=== PATIENT | male | born 1955 | race African-American/Black ===

== ENCOUNTER 2019-02-16 08:41 | Emergency (ER) | payer OTHER ==
[2019-02-16 09:51] LABS: #Basophils 0.1 thou/uL (0.0-0.2); #Eosinphils 0.2 thou/uL (0.0-0.7); #Lymphocytes 2.2 thou/uL (1.20-3.40); #Neutrophils 9.1 thou/uL (1.40-6.50); %Basophils 0.8 % (0.0-1.0); %Eosinophils 1.6 % (0.0-10.0); %Lymphocytes 17.7 % (21.0-51.0); %Monocytes 7.6 % (0.0-10.0); %Neutrophils 72.3 % (42.0-75.0); Hemoglobin 10.5 g/dL (14.0-18.0); Mean Corpuscular HGB CONC 30.4 g/dL (32.0-36.0); Mean Corpuscular Hemoglobin 24.3 pg (27.0-31.0); Mean Corpuscular Volume 79.8 fL (78.0-98.0); Mean Platelet Volume 8.4 fL (7.4-10.4); Platelet Count 313 thou/uL (130-400); RBC Distribution Width 15.9 % (11.5-14.5); Red Blood Cell (RBC) Count 4.34 mill/uL (4.70-6.10); White Blood Cell (WBC) Count 12.5 thou/uL (4.8-10.8)
[2019-02-16 09:52] LABS: ALT (SGPT) 22 U/L (8-55); AST (SGOT) 16 U/L (5-34); Albumin 3.6 g/dL (3.4-4.8); Alkaline Phosphatase 57 U/L (40-150); Anion Gap 13 mmol/L (10-20); BUN (Urea Nitrogen) 18 mg/dL (8.4-25.7); Bilirubin, Total 0.3 mg/dL (0.2-1.2); Calc. Creatinine Clearance 0 mL/min (70-130); Calcium 9.1 mg/dL (7.8-10.44); Carbon Dioxide 27 mmol/L (23-31); Chloride 101 mmol/L (98-107); Estimated GFR-MDRD Greater than 90; Globulin 3.1 g/dL (2.4-3.5); Glucose 96 mg/dL (80-115); Lipase 29 U/L (8-78); Potassium 4.8 mmol/L (3.5-5.1); Protein, Total 6.7 g/dL (5.8-8.1); Sodium 136 mmol/L (136-145)
== END 2019-02-16 11:50 | disposition home or self-care (01) ==
LOC: ERS 08:41
DX: E86.0 Dehydration (principal); K21.9 Gastro-esophageal reflux disease without esophagitis; E78.5 Hyperlipidemia, unspecified; I10 Essential (primary) hypertension; J44.9 Chronic obstructive pulmonary disease, unspecified; I73.9 Peripheral vascular disease, unspecified; F41.9 Anxiety disorder, unspecified; F32.9 Major depressive disorder, single episode, unspecified; Z79.899 Other long term (current) drug therapy
CPT/HCPCS: 36415; 80053; 83605; 83690; 85025; 96360; 96361

== ENCOUNTER 2019-10-03 00:22 | Inpatient (IN) | payer OTHER ==
[2019-10-03] MEDS ORDERED: Lorazepam 2 MG/ML VIAL ONE (00:37)
[2019-10-03 01:13] LABS: Prothrombin Time 13.6 SEC (12.0-14.7)
[2019-10-03 01:22] LABS: #Basophils 0.1 thou/uL (0.0-0.2); #Eosinphils 0.2 thou/uL (0.0-0.7); #Lymphocytes 3.2 thou/uL (1.20-3.40); #Monocytes 0.7 thou/uL (0.11-0.59); %Basophils 0.6 % (0.0-1.0); %Eosinophils 1.5 % (0.0-10.0); %Lymphocytes 24.3 % (21.0-51.0); %Neutrophils 68.8 % (42.0-75.0); Hemoglobin 11.6 g/dL (14.0-18.0); Mean Corpuscular HGB CONC 31.6 g/dL (32.0-36.0); Mean Corpuscular Volume 76.1 fL (78.0-98.0); Mean Platelet Volume 10.1 fL (7.4-10.4); Platelet Count 323 thou/uL (130-400); RBC Distribution Width 16.5 % (11.5-14.5); Red Blood Cell (RBC) Count 4.84 mill/uL (4.70-6.10); White Blood Cell (WBC) Count 13.1 thou/uL (4.8-10.8)
[2019-10-03] MEDS ORDERED: Pantoprazole 40 MG VIAL ONE (01:27)
[2019-10-03 01:29] LABS: ALT (SGPT) 15 U/L (8-55); AST (SGOT) 21 U/L (5-34); Albumin 4.1 g/dL (3.4-4.8); Alkaline Phosphatase 60 U/L (40-110); Anion Gap 15 mmol/L (10-20); BUN (Urea Nitrogen) 14 mg/dL (8.4-25.7); Bilirubin, Total 0.3 mg/dL (0.2-1.2); Calc. Creatinine Clearance 0 mL/min (70-130); Calcium 9.2 mg/dL (7.8-10.44); Carbon Dioxide 23 mmol/L (23-31); Chloride 108 mmol/L (98-107); Estimated GFR-MDRD Greater than 90; Globulin 3.6 g/dL (2.4-3.5); Glucose 110 mg/dL (80-115); Lipase 57 U/L (8-78); Potassium 4.4 mmol/L (3.5-5.1); Protein, Total 7.7 g/dL (5.8-8.1); Sodium 142 mmol/L (136-145)
[2019-10-03] MEDS ORDERED: Pantoprazole 80 MG, Admixture Fee 1 EACH in Sodium Chloride 0.9% 100 ML IVPB SCH (01:30)
[2019-10-03] MEDS ORDERED: Ondansetron PF 4 MG/2 ML Vial IVP PRN ×2 (03:39→07:15)
[2019-10-03] MEDS ORDERED: Acetaminophen 1,000 MG in Premix Bag 1 BAG IVPB PRN (03:39)
[2019-10-03] MEDS ORDERED: Sodium Chloride 0.9% 1,000 ML IV SCH (03:45)
[2019-10-03 04:15] VITALS: BMI 67.8
[2019-10-03] MEDS ORDERED: HYDROcodone/Acetaminophen 5/325 mg Tablet PO PRN (07:15)
[2019-10-03] MEDS ORDERED: Acetaminophen 325 MG TAB PO PRN (07:15)
--- NOTE | 2019-10-03 07:18 | PDOC.HHP ---
Hospitalist HPI - History of Present Illness Coffee ground emesis History of Present Illness: 64M with PMH dementia, bilateral AKA, HLD, HTN who presents from [facility] w/ 3 episodes coffee ground emesis, loose bloody BMs also reported, patient reported abdominal pain to ED downstairs but on my evaluation complains of chronic hip pain, is a poor historian. In ED, labs significant for hgb 11.,6, coags normal. patient to be admitted to [facility] for GI consult Hospitalist ROS - Review of Systems ROS unobtainable: due to mental status (dementia) - Medication Medications: Active Medications Generic Name Dose Route Start Last Admin Trade Name Freq PRN Reason Stop Dose Admin Sodium Chloride 1,000 mls @ 90 mls/hr 10/03/19 03:45 10/03/19 05:15 Normal Saline 0.9% IV 10/03/19 14:28 Not Given .[id number] [facility] Hospitalist History - Past Medical History Other Medical History: GERD, HLD, HTN, dementia, aphasia, cva, L hemiplegia, bilateral BKA - Past Surgical History Other Surgical History: bilateral aka - Family History Other Family History: reviewed and noncontributory - Social History Other Social History: liver at [facility] - Exam General Appearance: NAD Eye: PERRL ENT: normocephalic atraumatic Neck: supple, symmetric, no JVD Heart: RRR, no murmur, no gallops Respiratory: CTAB, no wheezes, no rales, no ronchi Gastrointestinal: soft, non-tender, non-distended, normal bowel sounds Extremities: no cyanosis, no clubbing, no edema Extremities - other findings: bilateral aka Skin: no lesions, no rashes Neurological - other findings: drowsy, reportedly due to medication given in ED Musculoskeletal: normal tone, normal strength Psychiatric: normal affect, normal behavior, A&O x 3 Psychiatric - other findings: drowsy Hospitalist Results - Labs Result Diagrams: 10/03/19 00:57 10/03/19 00:39 Lab results: WBC 13.1 thou/uL (4.8-10.8) H 10/03/19 00:57 Hgb 11.6 g/dL (14.0-18.0) L 10/03/19 00:57 Hct 36.8 % (42.0-52.0) L 10/03/19 00:57 MCV 76.1 fL (78.0-98.0) L 10/03/19 00:57 Plt Count 323 thou/uL (130-400) 10/03/19 00:57 Neutrophils % 68.8 % (42.0-75.0) 10/03/19 00:57 Sodium 142 mmol/L (136-145) 10/03/19 00:39 Potassium 4.4 mmol/L (3.5-5.1) 10/03/19 00:39 Chloride 108 mmol/L (98-107) H 10/03/19 00:39 Carbon Dioxide 23 mmol/L (23-31) 10/03/19 00:39 BUN 14 mg/dL (8.4-25.7) 10/03/19 00:39 Creatinine 0.98 mg/dL (0.7-1.3) 10/03/19 00:39 Glucose 110 mg/dL (80-115) 10/03/19 00:39 Calcium 9.2 mg/dL (7.8-10.44) 10/03/19 00:39 Total Bilirubin 0.3 mg/dL (0.2-1.2) 10/03/19 00:39 AST 21 U/L (5-34) 10/03/19 00:39 ALT 15 U/L (8-55) 10/03/19 00:39 Alkaline Phosphatase 60 U/L (40-110) 10/03/19 00:39 Serum Total Protein 7.7 g/dL (5.8-8.1) 10/03/19 00:39 Albumin 4.1 g/dL (3.4-4.8) 10/03/19 00:39 Lipase 57 U/L (8-78) 10/03/19 00:39 Hospitalist H&P A/P - Problem (1) Upper GI bleed Code(s): K92.2 - GASTROINTESTINAL HEMORRHAGE, UNSPECIFIED Status: Acute Assessment and Plan: consult placed for GI in the ED, trend hgb, transfuse PRN hgb < 7, continue IV PPI BID (2) Paroxysmal SVT (supraventricular tachycardia) Code(s): I47.1 - SUPRAVENTRICULAR TACHYCARDIA Status: Acute Assessment and Plan: improved with interventions in ED, EKGs with improvement of rate from 170s to 120s (3) GERD (gastroesophageal reflux disease) Code(s): K21.9 - GASTRO-ESOPHAGEAL REFLUX DISEASE WITHOUT ESOPHAGITIS Status: Chronic Qualifiers: Esophagitis presence: without esophagitis Qualified Code(s): K21.9 - Gastro -esophageal reflux disease without esophagitis Assessment and Plan: on BID IV PPI (4) H/O: CVA (cerebrovascular accident) Code(s): Z86.73 - PRSNL HX OF TIA (TIA), AND CEREB INFRC W/O RESID DEFICITS Status: Chronic Assessment and Plan: noted, continue home medications as appropriate (5) HLD (hyperlipidemia) Code(s): E78.5 - HYPERLIPIDEMIA, UNSPECIFIED Status: Chronic Assessment and Plan: noted, continue home meds as appropriate (6) HTN (hypertension) Code(s): I10 - ESSENTIAL (PRIMARY) HYPERTENSION Status: Chronic Qualifiers: Hypertension type: essential hypertension Qualified Code(s): I10 - Essential (primary) hypertension Assessment and Plan: noted, continue home medications as appropriate (7) Hx of AKA (above knee amputation) Code(s): Z89.619 - ACQUIRED ABSENCE OF UNSPECIFIED LEG ABOVE KNEE Status: Chronic Assessment and Plan: noted, PT eval, hold activity until they evlauate
[2019-10-03] MEDS: Sodium Chloride 0.9% 1,000 ML IV SCH (09:02)
[2019-10-03] MEDS: Pantoprazole 40 MG VIAL IVP SCH ×2 (09:03→21:40)
--- NOTE | 2019-10-03 11:36 | CON ---
DATE OF CONSULTATION: 10/03/2019 REQUESTING PHYSICIANS: Mena Hernandez MD REASON FOR CONSULTATION: Coffee-grounds emesis. HISTORY OF PRESENT ILLNESS: Dov Gee is a 64-year-old man with an unfortunate history of dementia and CVA as well as peripheral vascular disease, status post bilateral [id number] amputations. I met him briefly in May 2016, at which time, we placed a PEG tube for his oropharyngeal dysphagia. The examination endoscopically was otherwise normal at that time. The PEG tube has since been removed. My understanding is that he has been tolerating a pureed diet at his [facility]. He was sent here from the [facility] overnight with reports of 3 episodes of coffee-grounds emesis yesterday. Evidently, FOBT was checked in the ER and was positive, though it does not sound like he had any true melena or hematochezia. He has not had any emesis since admission this morning. He denies any nausea. He denies any abdominal pain. However, he is a difficult historian and does not always answer questions appropriately. Laboratory studies are showing hemoglobin 11.6, normal BUN only 14. He is receiving IV Protonix scheduled every 12 hours and has remained hemodynamically stable. REVIEW OF SYSTEMS: Full review of systems including constitutional, head, eyes, ears, nose, throat, GI, , cardiovascular, respiratory, musculoskeletal, neurologic systems was unable to be obtained due to the patient's altered mental status with baseline dementia. MEDICATIONS: Outpatient medications: 1. Venlafaxine. 2. Benztropine. 3. Amlodipine. 4. Divalproex. 5. Acetaminophen p.r.n. 6. Lisinopril. 7. Folic acid. 8. Docusate 100 mg b.i.d. 9. Metoprolol. 10. Pravastatin. Inpatient medications: Pantoprazole 40 mg IV b.i.d. PAST MEDICAL HISTORY: GERD; hypertension; hyperlipidemia; dementia; CVA; aphasia; oropharyngeal dysphagia; left hemiplegia; bilateral [id number] amputation; PEG tube placement in May 2016, which has since been removed. FAMILY HISTORY: Noncontributory. SOCIAL HISTORY: Lives at [facility]. PHYSICAL EXAMINATION: VITAL SIGNS: Temperature 96.7, pulse 95, blood pressure 121/78, and oxygen saturation 95% on room air. GENERAL: A 64-year-old man, lying in bed comfortably, in no acute distress. Mental, he is able to answer some questions, but not all appropriately. He is not oriented to place or time. SKIN: No jaundice. No rashes are palpable. EYES: No scleral icterus. Extraocular eye movements intact. ENT: Mucous membranes moist. No oral lesions. LYMPH: No submandibular or supraclavicular lymphadenopathy. THYROID: Nontender to palpation. HEART: Regular rate and rhythm. LUNGS: Clear to auscultation bilaterally. ABDOMEN: Flat. Bowel sounds present. Soft, nontender to palpation throughout. Midline scar is well-healed. Scar from prior PEG site in the left upper quadrant is also well healed. EXTREMITIES: No peripheral edema. VESSELS: Radial pulses 2+ bilaterally. NEURO: He has contractions with left hemiplegia. LABORATORY STUDIES: Hemoglobin 11.6, WBC 13.1, and platelets 323. INR 1.0. Sodium 142, potassium 4.4, BUN 14, creatinine 0.98, and lipase 57. LFTs all normal. ASSESSMENT AND PLAN: 1. Coffee-grounds emesis. 2. Anemia, mild. 3. Heme-positive stool. The report is that he had 3 episodes of coffee-grounds emesis yesterday. He does have a mild anemia, unclear what the chronicity of this is. He is not currently complaining of any symptoms and remains hemodynamically stable. It would be reasonable to perform EGD for further investigation, particularly as it does not appear he is on chronic acid suppression at the [facility]. We will plan for diagnostic esophagogastroduodenoscopy tomorrow. He can have his pureed diet today, or whatever speech pathology had recommended, then have him n.p.o. after midnight for procedure tomorrow. Further recommendations following esophagogastroduodenoscopy. Continue with the IV Protonix b.i.d. in the meantime. Thank you for the consultation. Please call anytime with questions or concerns. Job ID: [id number]
[2019-10-03] MEDS ORDERED: Sodium Chloride 0.9% (PF) 10 ML VIAL FS PRN (20:14)
[2019-10-04] MEDS: Sodium Chloride 0.9% 1,000 ML IV SCH (02:54)
[2019-10-04 04:56] LABS: #Basophils 0.1 thou/uL (0.0-0.2); #Eosinphils 0.2 thou/uL (0.0-0.7); #Lymphocytes 1.5 thou/uL (1.20-3.40); #Monocytes 0.4 thou/uL (0.11-0.59); #Neutrophils 4.2 thou/uL (1.40-6.50); %Basophils 0.8 % (0.0-1.0); %Monocytes 6.2 % (0.0-10.0); %Neutrophils 65.9 % (42.0-75.0); Hemoglobin 9.1 g/dL (14.0-18.0); Mean Corpuscular HGB CONC 30.3 g/dL (32.0-36.0); Mean Corpuscular Hemoglobin 23.2 pg (27.0-31.0); Mean Corpuscular Volume 76.5 fL (78.0-98.0); Platelet Count 245 thou/uL (130-400); RBC Distribution Width 16.3 % (11.5-14.5); White Blood Cell (WBC) Count 6.4 thou/uL (4.8-10.8)
[2019-10-04 05:18] LABS: ALT (SGPT) 11 U/L (8-55); AST (SGOT) 28 U/L (5-34); Albumin 3.3 g/dL (3.4-4.8); Alkaline Phosphatase 51 U/L (40-110); Anion Gap 11 mmol/L (10-20); BUN (Urea Nitrogen) 9 mg/dL (8.4-25.7); Bilirubin, Total 0.3 mg/dL (0.2-1.2); Calc. Creatinine Clearance 85 mL/min (70-130); Calcium 8.1 mg/dL (7.8-10.44); Carbon Dioxide 22 mmol/L (23-31); Chloride 112 mmol/L (98-107); Estimated GFR-MDRD Greater than 90; Globulin 2.6 g/dL (2.4-3.5); Glucose 80 mg/dL (80-115); Potassium 3.7 mmol/L (3.5-5.1); Protein, Total 5.9 g/dL (5.8-8.1); Sodium 141 mmol/L (136-145)
[2019-10-04] MEDS ORDERED: Ondansetron HCl/PF 4 MG/2 ML Vial IVP PRN (07:48)
--- NOTE | 2019-10-04 08:43 | OP ---
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 PROCEDURE PERFORMED: Esophagogastroduodenoscopy, diagnostic. INDICATIONS: 1. Hematemesis. 2. Anemia. 3. Heme-positive stool. MEDICATIONS: See Anesthesia record. FINDINGS: After discussion of the risks, benefits, and alternatives of the procedure, informed consent was obtained and verified. Pre-endoscopic cardiopulmonary examination was satisfactory. Time-out was performed before sedation was achieved. Sedation was achieved with Anesthesia assistance in the endoscopy unit. A Pentax adult upper endoscope was placed into the oropharynx and passed through the cricopharyngeus under direct visualization. The proximal esophageal mucosa appeared normal. In the mid and distal esophagus, there is erosive esophagitis, LA grade C. Just above the GE junction at 38 cm, there is a shallow ulceration. There is a small hiatal hernia. The endoscope was advanced beyond this and into the stomach. Forward and retroflexed views of the entire gastric mucosa were obtained. The gastric mucosa appeared normal. The endoscope was advanced through the pylorus and into the first and second portions of the duodenum, which appeared normal. The upper endoscope was completely withdrawn and the patient allowed to recover. The patient tolerated the procedure well. There were no immediate postprocedure complications. IMPRESSION: 1. Distal erosive esophagitis, with shallow ulcer just above the gastroesophageal junction at 38 cm. 2. Small hiatal hernia. 3. Otherwise, normal esophagogastroduodenoscopy. 4. No evidence of any old blood or active bleeding. RECOMMENDATIONS: 1. Give pantoprazole 40 mg by mouth twice daily for 1 month, then switch to once daily dosing thereafter. 2. Elevate the head of the bed, especially in 1 to 2 hours after meals or taking any pills. GI will sign off. Please call back anytime with questions or concerns. Job ID: [id number]
[2019-10-04] MEDS: Pantoprazole 40 MG VIAL IVP SCH ×2 (09:48→22:10)
[2019-10-04] MEDS ORDERED: Lidocaine 1% PF 5 ML VIAL ONE (11:10)
[2019-10-04] MEDS ORDERED: PROPOFOL 200 MG/20 ML VIAL ONE (11:10)
[2019-10-04] MEDS ORDERED: traMADol HCl 50 MG TAB PO PRN (17:58)
--- NOTE | 2019-10-04 18:13 | PDOC.HOSPP ---
- Subjective Encounter Date: 10/04/19 Encounter Time: 18:00 Subjective: f/u for GI bleed s/p EGD showing distal erosive esophagitis tx with IV Protonix. Pt denies any new complaints and tolerating po intake of pureed diet. - Objective Vital Signs & Weight: Vital Signs (12 hours) Temp Pulse Resp BP Pulse Ox 10/04/19 15:05 98.1 F 84 16 182/95 H 99 10/04/19 12:07 98.3 F 91 14 140/84 99 10/04/19 07:45 96 10/04/19 07:41 97.8 F 110 H 18 165/71 H 96 Weight Weight 125 lb 1.6 oz I&O: 10/03/19 10/04/19 10/05/19 06:59 06:59 06:59 Intake Total 0 Balance 0 Result Diagrams: 10/04/19 04:24 10/04/19 04:24 Additional Labs: Microbiology 10/03/19 01:10 Stool - Pending Stool Occult Blood (LATOYA) - Final Laboratory Tests 10/03/19 00:57 WBC 13.1 H Hgb 11.6 L EKG Reviewed by me: Yes (Tele - SR) Hospitalist ROS - Medication Medications: Active Medications Generic Name Dose Route Start Last Admin Trade Name Freq PRN Reason Stop Dose Admin Sodium Chloride 1,000 mls @ 50 mls/hr 10/03/19 07:15 10/04/19 02:54 Normal Saline 0.9% IV 1,000 mls .Q20H JOSSUE Administration Pantoprazole Sodium 40 mg 10/04/19 09:00 10/04/19 09:48 Protonix IVP 40 mg BID JOSSUE Administration Sodium Chloride 10 ml 10/03/19 09:00 10/04/19 09:49 Flush - Normal Saline IVF 10 ml Q12HR JOSSUE Administration - Exam General Appearance: NAD, awake alert Eye: PERRL, anicteric sclera ENT: normocephalic atraumatic, no oropharyngeal lesions Neck: supple, symmetric, no JVD, no thyromegaly Heart: RRR, no gallops, no rubs Heart - other findings: tachycardic Respiratory: CTAB, no wheezes, no rales, no ronchi Gastrointestinal: soft, non-tender, non-distended, normal bowel sounds Extremities: no cyanosis, no clubbing Extremities - other findings: contractures of UE's Skin: normal turgor Neurological: no new deficit Neurological - other findings: dysarthric, L-hemiplegia Psychiatric: oriented to person Hosp A/P (1) Erosive esophagitis Code(s): K22.10 - ULCER OF ESOPHAGUS WITHOUT BLEEDING Status: Acute Plan: Continue Protonix 40mg BID (2) Upper GI bleed Code(s): K92.2 - GASTROINTESTINAL HEMORRHAGE, UNSPECIFIED Status: Acute Plan: Likely due to #1, see above (3) GERD (gastroesophageal reflux disease) Code(s): K21.9 - GASTRO-ESOPHAGEAL REFLUX DISEASE WITHOUT ESOPHAGITIS Status: Chronic Qualifiers: Esophagitis presence: without esophagitis Qualified Code(s): K21.9 - Gastro -esophageal reflux disease without esophagitis Plan: Protonix 40mg BID (4) Dementia Code(s): F03.90 - UNSPECIFIED DEMENTIA WITHOUT BEHAVIORAL DISTURBANCE Status: Chronic Qualifiers: Dementia type: unspecified type Dementia behavioral disturbance: without behavioral disturbance Qualified Code(s): F03.90 - Unspecified dementia without behavioral disturbance Plan: Supportive care - Plan administrator social welfare, DVT proph w/SCDs Stable currently Continue Protonix 40mg BID Resume Pureed diet Saline lock IVF's AM lab: CBC Likely back to [facility] in 24h
[2019-10-04] MEDS ORDERED: Benztropine 1 MG TAB PO SCH (21:00)
[2019-10-04] MEDS: Benztropine 1 MG TAB PO SCH (22:09)
[2019-10-04] MEDS: Docusate 100 MG CAP PO SCH (22:09)
[2019-10-04] MEDS: Metoprolol Tartrate 25 MG TAB PO SCH (22:10)
[2019-10-05 07:15] LABS: Reticulocyte Count 1.2 % (0.5-1.5)
[2019-10-05 08:19] LABS: Eosinophils 5 % (0-10); Hemoglobin 9.5 g/dL (14.0-18.0); Hypochromia SLIGHT = 6-15 cells (100X) (0-5/hpf); Lymphocytes 25 % (21-51); MDiff Complete? YES; Mean Corpuscular HGB CONC 29.7 g/dL (32.0-36.0); Mean Corpuscular Hemoglobin 22.5 pg (27.0-31.0); Mean Corpuscular Volume 75.7 fL (78.0-98.0); Mean Platelet Volume 9.9 fL (7.4-10.4); Neutrophil 70 % (42-75); Ovalocytes SLIGHT = 2-5 cells (100X) (0-1/hpf); Platelet Count 264 thou/uL (130-400); Poikilocytosis SLIGHT = 6-15 cells (100X) (0-5/hpf); RBC Distribution Width 16.4 % (11.5-14.5); Red Blood Cell (RBC) Count 4.21 mill/uL (4.70-6.10); White Blood Cell (WBC) Count 6.2 thou/uL (4.8-10.8)
[2019-10-05] MEDS ORDERED: Lisinopril 20 MG TAB PO SCH (09:00)
[2019-10-05] MEDS ORDERED: Amlodipine 5 MG TAB PO SCH (09:00)
[2019-10-05] MEDS ORDERED: Folic Acid 1 MG TAB PO SCH (09:00)
[2019-10-05] MEDS: Docusate 100 MG CAP PO SCH (10:28)
[2019-10-05] MEDS: Metoprolol Tartrate 25 MG TAB PO SCH (10:28)
[2019-10-05] MEDS: Benztropine 1 MG TAB PO SCH (10:28)
[2019-10-05] MEDS: Pantoprazole 40 MG VIAL IVP SCH (10:29)
[2019-10-05 12:36] VITALS: BP 143/87; TEMP 98.5
--- NOTE | 2019-10-06 18:27 | DIS ---
DATE OF ADMISSION: 10/03/2019 DATE OF DISCHARGE: 10/05/2019 DISCHARGE DISPOSITION: [facility]. FOLLOWUP: Follow up with Dr. Qureshi at the nursing facility. CODE STATUS: Do not resuscitate. ALLERGIES: NO KNOWN DRUG ALLERGIES. DISCHARGE MEDICATION: Protonix 40 mg twice daily for 1 month, then daily. All other home medications were left unchanged. Head elevation for 1-2 hours after each feeding is recommended by Gastroenterology. The patient was seen and examined on the day of discharge. Denies any new complaints. BRIEF HOSPITAL COURSE: The patient is a 64-year-old male with dementia, currently residing at a nursing facility, was brought into the emergency room with 3 episodes of coffee-ground emesis along with loose bloody bowel movements. Please refer to the history and physical by Dr. Bruno Eckert for further details. The patient was admitted to the hospital with a diagnosis of GI bleeding. His initial hemoglobin was 11.6. He was started on Protonix drip. He was monitored on the telemetry unit. He underwent EGD by Dr. Yevgeniy Sarabia that showed distal erosive esophagitis with a shallow ulcer just above the gastroesophageal junction at 38 cm. There was also a small hiatal hernia. PPI twice daily for 1 month followed by daily is recommended. All other home medications were left unchanged. His hemoglobin at discharge was 9.5. He has been cleared by Gastroenterology for discharge. FINAL DIAGNOSES: 1. Upper GI bleeding. 2. Acute blood loss anemia. 3. Paroxysmal supraventricular tachycardia in the emergency room with heart rate in 170s, resolved spontaneously. 4. Gastroesophageal reflux disease. 5. Swallow dysfunction. 6. History of cerebrovascular accident. 7. Hypertension. 8. Hyperlipidemia. 9. Dementia. 10. History of deep venous thrombosis. 11. History of bilateral above-knee amputation. TIME SPENT WITH PATIENT: Total time coordinating the discharge of this patient was 33 minutes. Job ID: [id number]
--- NOTE | 2019-10-08 08:37 | PQF ---
LUZ MONROY RICHARD D MD [id number] [facility] [id number] CLINICAL DOCUMENTATION CLARIFICATION FORM: POST DISCHARGE Addendum to original discharge summary date: ____ Late entry note date: __ DATE: 10/08/2019 ATTN: SHENA ALEJANDRO MD Please exercise your independent, professional judgment in responding to the clarification form. Clinical indicators are provided on the bottom of this form for your review Please check appropriate box(s): [ ] Excisional Debridement: [ ] Excised [ ] Cut away [ ] Other: _ Depth / layer: (deepest layer of debridement): [ ] Skin[ ] SubQ Tissue [ ] Fascia [ ] Muscle [ ] Tendon [ ] Bone Appearance of wound: (e.g., down to fresh bleeding tissue, etc.) Margins: (please specify): _ / Instruments used: [ ] Scissors [ ] Scalpel [ ] Curette [ ] Soft tissue clipper [ ] Other : [ ] Non-excisional Debridement: (Removal by flushing, brushing, chemical, or washing) Depth / layer: (deepest layer of debridement): [ ] Skin[ ] Subcutaneous [ ] Fascia [ ] Muscle [ ] Tendon [ ] Bone [ ] Other procedure diagnosis [ ] Unable to determine For continuity of documentation, please document condition throughout progress notes and discharge summary. Thank You. CLINICAL INDICATORS - SIGNS / SYMPTOMS / LABS - Debridement of coccyx and sacrum bones and subcutaneous and muscular tissue, connective tissues- OP note, 09/28, SHENA ALEJANDRO MD - Prepared with Betadine and draped in routine fashion, there was exposed bone- OP note, 09/28, SHENA ALEJANDRO MD - This was resected with rongeur, connective tissue resected-OP note, 09/28, SHENA ALEJANDRO MD - Coccyx bone : Bacterial culture, 09/28, Microbiology RISK FACTORS - Sacral decubitus stage 4- OP note, 09/28, SHENA ALEJANDRO MD - Left hemiplegia-OP note, 09/28, SHENA ALEJANDRO MD TREATMENTS: -Wound care-OP note, 09/28, SHENA ALEJANDRO MD -Wound VAC-OP note, 09/28, SHENA ALEJANDRO MD -Rocephin.IV-JAN, 09/24 (This form is maintained as a part of the permanent medical record) 2014 [employer], [employer]. All Rights Reserved Britt[employer] Us [not provided] [not provided] MTDD
--- NOTE | 2019-10-08 08:51 | PQF ---
TATE MONROYKULDEEP HUSSAIN MCCOY [id number] CLINICAL DOCUMENTATION CLARIFICATION FORM: POST DISCHARGE Addendum to original discharge summary date: ____ Late entry note date: __ DATE: 10/08/2019 ATTN:HUSSAIN MCCOY Please exercise your independent, professional judgment in responding to the clarification form. Clinical indicators are provided on the bottom of this form for your review Diagnosis: Sepsis Present on Admission (POA): [ ] Yes [ ] No [ ] Unable to determine Coding guidelines require hospitals to identify whether a diagnosis was present on admission (POA) or not. To accurately assign the appropriate POA indicator, this information must be clearly documented within the medical record. CLINICAL INDICATORS - SIGNS / SYMPTOMS / LABS - Sepsis- Hospital PN, 10/04, Dieter Eduardo - Temp: 97.9, HR: 69, RR:16-H&P, 09/24, HUSSAIN MCCOY MD - WBC: 7.8- Laboratory, 09/25 - UTI- ED record, 09/24, Sharer Lizette -concern for osteomyelitics in sacral wound- Admit order, 09/26 RISK FACTORS: -Acute encephalopathy, H&P, 09/24, HUSSAIN MCCOY MD -Sacral Decubitus ulcer stage IV-, H&P, 09/24, HUSSAIN MCCOY MD TREATMENT: - Ceftriaxone 500mg-H&P, 09/24, HUSSAIN MCCOY MD I am not the attending of record. (This form is maintained as a part of the permanent medical record) 2014 [employer] All Rights Reserved [employer] Us [not provided] [not provided] MTDD
== END 2019-10-05 12:30 | DRG 381 ==
LOC: ERS 00:22 → 2NO 03:18
PROVIDERS: ADMIT Internal Medicine; ATTEND Internal Medicine
PROC: 0DJ08ZZ Inspection of Upper Intestinal Tract, Via Natural or Artificial Opening Endoscopic (ICD-10-PCS; principal; 2019-10-04)
DX: K22.11 Ulcer of esophagus with bleeding (principal); D62 Acute posthemorrhagic anemia; I47.1 Supraventricular tachycardia; I69.354 Hemiplegia and hemiparesis following cerebral infarction affecting left non-dominant side; F03.90 Unspecified dementia, unspecified severity, without behavioral disturbance, psychotic disturbance, mood disturbance, and anxiety; Z66 Do not resuscitate; K44.9 Diaphragmatic hernia without obstruction or gangrene; K21.9 Gastro-esophageal reflux disease without esophagitis; I10 Essential (primary) hypertension; E78.5 Hyperlipidemia, unspecified; R13.10 Dysphagia, unspecified; I73.9 Peripheral vascular disease, unspecified; J44.9 Chronic obstructive pulmonary disease, unspecified; F41.9 Anxiety disorder, unspecified; Z79.01 Long term (current) use of anticoagulants; Z86.718 Personal history of other venous thrombosis and embolism; Z89.612 Acquired absence of left leg above knee; Z89.611 Acquired absence of right leg above knee
CPT/HCPCS: 36415; 36416; 80053; 82274; 82728; 83540; 83690; 85007; 85025; 85027; 85046; 85610; 86850; 86870; 86900; 86901; 86922; 93005; 96361; 96374; 96375; C9113; J2001; J2060; J2704; J3490

== ENCOUNTER 2020-02-14 12:47 | Inpatient (IN) | payer OTHER ==
[~2020-02-14 12:47] MED LIST: Iopamidol 370 76% 100 ML VIAL ONE
[2020-02-14 13:29] LABS: #Eosinphils 0.1 thou/uL (0.0-0.7); #Lymphocytes 1.4 thou/uL (1.20-3.40); #Monocytes 0.8 thou/uL (0.11-0.59); #Neutrophils 10.9 thou/uL (1.40-6.50); %Basophils 0.1 % (0.0-1.0); %Eosinophils 0.6 % (0.0-10.0); %Lymphocytes 10.9 % (21.0-51.0); %Monocytes 6.2 % (0.0-10.0); %Neutrophils 82.3 % (42.0-75.0); Mean Corpuscular HGB CONC 31.1 g/dL (32.0-36.0); Mean Corpuscular Hemoglobin 24.4 pg (27.0-31.0); Mean Corpuscular Volume 78.6 fL (78.0-98.0); Mean Platelet Volume 9.9 fL (7.4-10.4); Platelet Count 291 thou/uL (130-400); RBC Distribution Width 15.7 % (11.5-14.5); Red Blood Cell (RBC) Count 4.92 mill/uL (4.70-6.10); White Blood Cell (WBC) Count 13.3 thou/uL (4.8-10.8)
[2020-02-14] MEDS ORDERED: Lorazepam 2 MG/ML VIAL ONE ×2 (13:36→14:16)
[2020-02-14 13:50] LABS: ALT (SGPT) 13 U/L (8-55); AST (SGOT) 13 U/L (5-34); Albumin 3.9 g/dL (3.4-4.8); Alkaline Phosphatase 54 U/L (40-110); Anion Gap 12 mmol/L (10-20); BUN (Urea Nitrogen) 23 mg/dL (8.4-25.7); Bilirubin, Total 0.4 mg/dL (0.2-1.2); Calc. Creatinine Clearance 0 mL/min (70-130); Calcium 8.9 mg/dL (7.8-10.44); Carbon Dioxide 26 mmol/L (23-31); Chloride 105 mmol/L (98-107); Estimated GFR-MDRD 87; Globulin 3.2 g/dL (2.4-3.5); Glucose 84 mg/dL (80-115); Potassium 4.4 mmol/L (3.5-5.1); Protein, Total 7.1 g/dL (5.8-8.1); Sodium 139 mmol/L (136-145)
[2020-02-14 15:06] LABS: Bacteria/HPF None Seen HPF (None Seen); Bilirubin Negative (Negative); Blood, Urine 1+ (Negative); Clarity Clear (Clear); Glucose, Urine (Dipstick) Normal (Negative); Leukocyte Negative Leu/uL (Negative); Nitrite Negative (Negative); Protein, Urine (Dipstick) 100 mg/dL (Neg-Trace); RBC/HPF 21-50 HPF (0-3); Squamous Epithelial None Seen HPF (0-3); Urobilinogen Normal mg/dL (Less than 2); WBC/HPF 0-3 HPF (0-3)
--- NOTE | 2020-02-14 15:10 | CT ---
CT ABDOMEN AND PELVIS PERFORMED WITH CONTRAST ENHANCEMENT: HISTORY: Altered mental status, hematemesis. Abdominal pain. FINDINGS: The lung bases are clear of any infiltrative process. The liver, spleen, pancreas, and gallbladder regions appear unremarkable. Right and left adrenal glands and right and left kidneys are normal in size. Bilateral renal cysts a re present. Two large cysts, one in the lower pole of the left kidney and a larger in the lower pole left kidney measuring 7.3 cm. There is no significant periaortic or mesenteric adenopathy. There i s reflux into the distal esophagus and the esophageal wall is somewhat thickened. The aorta occludes just below the level of the renal arteries. I also do not see any definitive flow in the aortofemoral graft. There is a fecal impaction with a stercoral colitis. No free fluid. No signs of perforation or obstruction. IMPRESSION: 1. Distal esophageal wall thickening. 2. Bilateral renal cysts. 3. Fecal impaction with changes suggestive of a stercoral colitis. 4. 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 No definitive flow is seen within the [place] vessels or graft below this level. Findings discussed Hilda Richards. CODE CR POS: Sancho
--- NOTE | 2020-02-14 15:36 | PDOC.FPRHP ---
- Allergies/Adverse Reactions Allergies Allergy/AdvReac Type Severity Reaction Status Date / Time No Known Allergies Allergy Verified 10/03/19 04:28 - Home Medications Medication Instructions Recorded Confirmed Type Docusate [Colace] 100 mg PO BID 07/10/13 10/03/19 History Lisinopril [Zestril] 20 mg PO DAILY 07/10/13 10/03/19 History Acetaminophen [Tylenol Regular 325 mg PO Q6HR PRN 06/06/16 10/03/19 History Strength] Benztropine [Cogentin] 1 mg PO BID 06/06/16 10/03/19 History Divalproex Sodium [Divalproex 250 mg PO BID 06/06/16 10/03/19 History Sodium ER] Folic Acid [Folvite] 1 mg PO DAILY 06/06/16 10/03/19 History Metoprolol Tartrate 12.5 mg PO BID 06/06/16 10/03/19 History Amlodipine [Norvasc] 5 mg PO DAILY 10/03/19 10/03/19 History Benztropine [Cogentin] 1 mg PO BID 10/03/19 10/03/19 History Pravastatin Sodium [Pravachol] 40 mg PO HS 10/03/19 10/03/19 History Venlafaxine HCl [Effexor] 75 mg PO BID 10/03/19 10/03/19 History Ferrous Sulfate 7.5 ml PO BID 10/04/19 10/04/19 History Magnesium Hydroxide [Milk of 40 ml PO Q24H PRN 10/04/19 10/04/19 History Magnesia] traMADol HCl [Tramadol HCl] 50 mg PO Q8H PRN 10/04/19 10/04/19 History Pantoprazole [Protonix] 40 mg PO BID #60 tab 10/05/19 Rx - History PMHx: PSHx: FHx: Social: - Vital signs BP: [] HR: [] RR: [] Tmax: [] Pox: []% on [] Wt: [] FMR H&P: Results - Labs Result Diagrams: 02/14/20 13:20 02/14/20 13:20 Lab results: WBC 13.3 thou/uL (4.8-10.8) H 02/14/20 13:20 Hgb 12.0 g/dL (14.0-18.0) L 02/14/20 13:20 Hct 38.7 % (42.0-52.0) L 02/14/20 13:20 MCV 78.6 fL (78.0-98.0) 02/14/20 13:20 Plt Count 291 thou/uL (130-400) 02/14/20 13:20 Neutrophils % 82.3 % (42.0-75.0) H 02/14/20 13:20 Sodium 139 mmol/L (136-145) 02/14/20 13:20 Potassium 4.4 mmol/L (3.5-5.1) 02/14/20 13:20 Chloride 105 mmol/L (98-107) 02/14/20 13:20 Carbon Dioxide 26 mmol/L (23-31) 02/14/20 13:20 BUN 23 mg/dL (8.4-25.7) 02/14/20 13:20 Creatinine 1.05 mg/dL (0.7-1.3) 02/14/20 13:20 Glucose 84 mg/dL (80-115) 02/14/20 13:20 Lactic Acid 1.1 mmol/L (0.5-2.2) 02/14/20 13:20 Calcium 8.9 mg/dL (7.8-10.44) 02/14/20 13:20 Total Bilirubin 0.4 mg/dL (0.2-1.2) 02/14/20 13:20 AST 13 U/L (5-34) 02/14/20 13:20 ALT 13 U/L (8-55) 02/14/20 13:20 Alkaline Phosphatase 54 U/L (40-110) 02/14/20 13:20 Serum Total Protein 7.1 g/dL (5.8-8.1) 02/14/20 13:20 Albumin 3.9 g/dL (3.4-4.8) 02/14/20 13:20 Urine Ketones Negative mg/dL (Negative) 02/14/20 14:49 Urine Blood 1+ (Negative) A 02/14/20 14:49 Urine Nitrite Negative (Negative) 02/14/20 14:49 Ur Leukocyte Esterase Negative Mi[place]/uL (Negative) 02/14/20 14:49 Urine RBC 21-50 HPF (0-3) A 02/14/20 14:49 Urine WBC 0-3 HPF (0-3) 02/14/20 14:49 Ur Squamous Epith Cells None Seen HPF (0-3) 02/14/20 14:49 Urine Bacteria None Seen HPF (None Seen) 02/14/20 14:49 FMR H&P: Upper Level - Plan Date/Time: 02/14/20 1536 I, [], have evaluated this patient and agree with findings/plan as outlined by development intern resident. Pertinent changes/additions are listed here.
--- NOTE | 2020-02-14 16:06 | RAD ---
EXAM: Single view of the abdomen HISTORY: Coffee-ground projectile emesis COMPARISON: None FINDINGS: Single view of the abdomen shows a nonspecific, nonobstructive bowel gas pattern. An NG tub e is seen in the stomach. No suspicious calcifications are seen. The bones are unremarkable. IMPRESSION: Unremarkable exam
[2020-02-14] MEDS ORDERED: metroNIDAZOLE 500 MG/100 ML BAG ONE (16:26)
[2020-02-14] MEDS ORDERED: Cefepime 2 GM VIAL ONE (16:26)
[2020-02-14] MEDS ORDERED: Pantoprazole 40 MG VIAL ONE ×2 (16:26→16:28)
[2020-02-14] MEDS ORDERED: Vancomycin HCl 1.75 GM in Sodium Chloride 0.9% 500 ML IVPB SCH (16:45)
--- NOTE | 2020-02-14 18:06 | RAD ---
EXAM: Single view of the chest HISTORY: Sepsis with abdominal pain and possible pneumonia COMPARISON: 01/28/2015 FINDINGS: Single view of the chest shows an enlarged but stable cardiomediastinal silhouette. An NG tube is seen in the stomach. There is no evidence of consolidation, mass, or pleural effusion. The bones are unremarkable. IMPRESSION: No evidence of acute cardiopulmonary disease
[2020-02-14 18:20] LABS: #Basophils 0.1 thou/uL (0.0-0.2); #Eosinphils 0.2 thou/uL (0.0-0.7); #Lymphocytes 1.8 thou/uL (1.20-3.40); #Monocytes 0.8 thou/uL (0.11-0.59); #Neutrophils 8.7 thou/uL (1.40-6.50); %Basophils 0.7 % (0.0-1.0); %Eosinophils 1.3 % (0.0-10.0); %Lymphocytes 15.5 % (21.0-51.0); %Monocytes 6.7 % (0.0-10.0); %Neutrophils 75.8 % (42.0-75.0); Hemoglobin 10.7 g/dL (14.0-18.0); Mean Corpuscular HGB CONC 31.3 g/dL (32.0-36.0); Mean Corpuscular Hemoglobin 24.4 pg (27.0-31.0); Mean Corpuscular Volume 77.9 fL (78.0-98.0); Mean Platelet Volume 9.6 fL (7.4-10.4); Platelet Count 255 thou/uL (130-400); Red Blood Cell (RBC) Count 4.39 mill/uL (4.70-6.10); White Blood Cell (WBC) Count 11.4 thou/uL (4.8-10.8)
[2020-02-14] MEDS ORDERED: Fentanyl 100 MCG/2 ML VIAL SLOW IVP PRN (18:58)
[2020-02-14] MEDS ORDERED: Mineral Oil ENEMA PR SCH (19:00)
--- NOTE | 2020-02-14 20:04 | CON ---
DATE OF CONSULTATION: 02/14/2020 REASON FOR CONSULTATION: Hematemesis. 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 Unfortunately, the patient was not able to contribute much to the interview with the majority of his information obtained through chart review and speaking with the ER providers about the current clinical situation. Per chart review, the patient is currently residing in [facility] and was in his usual state of health until earlier today when he began having increasing amounts of coffee-ground emesis that were "projectile" in nature; ultimately, prompting the [facility] to send the patient to [facility] for further evaluation. While in the ER, he had an NG tube placed with approximately 300 to 400 mL of dark maroon/black colored fluid on low intermittent wall suction. There has been no mention of melenic-type stools nor was the patient recently started on any particular new medications as well. Otherwise, no additional information could be obtained. REVIEW OF SYSTEMS: Review of systems could not be obtained at this time due to the patient's altered mental status/dementia. PAST MEDICAL HISTORY: As per HPI. PAST SURGICAL HISTORY: PEG tube placement in May 2016, which has been reviewed and bilateral lower extremity amputations. FAMILY HISTORY: Unknown. SOCIAL HISTORY: No mention of any tobacco, alcohol, or illicit drug use. Currently, residing in the [facility]. MEDICATIONS: Outpatient medications reviewed. ALLERGIES: NO KNOWN DRUG ALLERGIES. PHYSICAL EXAMINATION: VITAL SIGNS: Pulse 114, blood pressure 111/56, respiratory rate 16, and saturating 98% on room air. GENERAL: The patient was lying in bed, in no acute distress, not responsive to verbal or tactile stimuli, but responsive to noxious stimuli. HEENT: Normocephalic and atraumatic. NECK: Supple. No JVD or scleral icterus noted. CARDIOVASCULAR: Tachycardic rate, but regular rhythm with no discernible murmurs, gallops, or rubs. RESPIRATORY: Clear to auscultation bilaterally with no discernible wheezes or rales. ABDOMEN: Normoactive bowel sounds. Soft and nondistended. Mild tenderness to palpation along a vertical incision site that extends from the [id number] abdomen. EXTREMITIES: Evidence of bilateral lower extremity amputations with limb stumps at the hips with no signs of skin breakdown. LABORATORY DATA: CBC with a white blood cell count of 11.4, hemoglobin 10.7, hematocrit 34.2, and platelets 255. Chemistry with a sodium of 139, potassium 4.4, chloride 105, CO2 of 26, BUN 23, creatinine 1.05, and glucose 84. AST 13, ALT 13, alkaline phosphatase 54, total bilirubin 0.4, and albumin 3.9. IMAGING DATA: CT of the abdomen/pelvis was obtained on February 14, 2020, which showed reflux into the distal esophagus with mild wall thickening of the distal esophagus. There was also a significant amount of stool contained within the large intestine with fecal impaction in the rectum suggestive of stercoral colitis. Occlusion of the [place] aorta just below the level of the renal arteries was also seen with no definitive flow within the [place] vessels or graft below this level. There was no evidence of perforation or obstruction seen within the abdomen. ASSESSMENT AND PLAN: The patient is a 64-year-old male with past medical history of gastroesophageal reflux disease with severe erosive esophagitis in September 2019; hypertension; hyperlipidemia; dementia; cerebrovascular accident; aphasia; oropharyngeal dysphagia, status post PEG tube placement and removal; left-sided residual hemiplegia; and bilateral lower extremity amputations, presenting with hematemesis. Hematemesis. The patient is presenting with acute onset of hematemesis characterized as dark red/coffee-ground emesis that occurred acutely this morning with a "projectile" type presentation. Upon transferring the patient to the [facility] ER, an NG tube was placed that showed a significant amount of dark red/black colored fluid obtained from the stomach consistent with an upper gastrointestinal bleed. Upon evaluation of the patient's chart, he had undergone upper endoscopy on October 04, 2019, with a very similar presentation and noted to have Brogue grade C distal erosive esophagitis with a shallow ulcer just above the gastroesophageal junction. At this time, repeat of his erosive esophagitis with ulceration seems likely; however, the differential could include esophagitis, gastritis, peptic ulcer disease, arteriovenous malformation, Dieulafoy lesion and/or gastrointestinal neoplasm (much less likely given negative upper endoscopy 4 months ago). Recommendations: 1. We would continue to trend the patient's H and H and transfuse as necessary to maintain an H and H of 7/21. 2. Continue to monitor clinically for signs of active gastrointestinal bleeding. 3. We would consider placing the patient in an intermediate care setting given the significant amount of hematemesis seen in the bedside canister thus far. 4. Continue pantoprazole drip. 5. We would avoid any anticoagulation in light of active gastrointestinal bleeding. 6. We would attempt the elevate the head of the bed approximately 30 degrees to prevent any further reflux and resultant erosive esophagitis. 7. Continue resuscitation of the patient with plans for upper endoscopy tomorrow morning for evaluation of the upper gastrointestinal tract. We will continue to follow. Please call with any questions. Job ID: [id number]
[2020-02-14] MEDS: Sodium Chloride 0.9% 1,000 ML IV SCH (20:18)
[2020-02-14] MEDS: Pantoprazole 80 MG, Admixture Fee 1 EACH in Sodium Chloride 0.9% 100 ML IVPB SCH (20:19)
[2020-02-14] MEDS ORDERED: Lorazepam 2 MG/ML VIAL SLOW IVP PRN (20:45)
[2020-02-14] MEDS ORDERED: Lorazepam 2 MG/ML VIAL SLOW IVP SCH (21:00)
--- NOTE | 2020-02-14 21:47 | HP ---
CHIEF COMPLAINT: Coffee-grounds emesis. HISTORY OF PRESENT ILLNESS: This patient is a 64-year-old male who was actually admitted to this facility in September 2019, at which time he had some coffee- grounds emesis and was diagnosed with erosive esophagitis, grade C. It appears he has had prior visits for GI bleed symptoms in 2012 and earlier in 2018 as well. The patient has a history of a CVA with vascular dementia and left hemiplegia. The patient was noted at the long-term facility today to have "projectile vomiting" with a black coffee-ground type emesis. He was subsequently brought to the emergency department. His D-stick was 105, BP was 116/70. On arrival, he was afebrile. In the emergency department, the patient has had an NG tube placed, which is evacuating very dark red aspirate. Apparently in the emergency department, he has had a bowel movement that was described as "slimy." REVIEW OF SYSTEMS: The patient is unable to give review of systems because of his underlying dementia. PAST MEDICAL HISTORY: Notable for severe vascular disease with bilateral lower extremity [id number] amputations. He has hyperlipidemia, hypertension, left hemiplegia from prior CVA, COPD. He has oropharyngeal dysphagia, on a pureed diet with nectar thick liquids. History of anxiety, history of depression, history of iron deficiency anemia, history of gastroesophageal reflux, also the above- mentioned erosive esophagitis. PAST SURGICAL HISTORY: Bilateral [id number] amputations. He also has an abdominal scar from some type of prior surgery, although it is not documented. He appears to have some type of aortic bypass graft on CT scan. FAMILY HISTORY: Currently unobtainable. SOCIAL HISTORY: Again, the patient lives at [facility] as a permanent resident. He has a family member listed as his [id number]. CURRENT MEDICATIONS: Based on the information from the nursing facility, 1. Benztropine 1 mg b.i.d. 2. Depakote 125 mg two p.o. b.i.d. 3. Docusate 100 mg b.i.d. 4. Ferrous sulfate 224 mg b.i.d. 5. Folic acid 1 mg daily. 6. Lisinopril 20 mg one p.o. daily. 7. Metoprolol 12.5 mg one p.o. b.i.d. 8. Milk of magnesia p.r.n. constipation. 9. Norvasc 5 mg p.o. daily. 10. Pravastatin 40 mg one p.o. daily. 11. Protonix granules 40 mg p.o. daily. 12. Tramadol 50 mg q.6 hours p.r.n. pain. 13. Tylenol p.r.n. 14. Venlafaxine 75 mg p.o. daily. ALLERGIES: NONE. PHYSICAL EXAMINATION: VITAL SIGNS: On arrival, BP 148/91, pulse 95, respirations 18, temperature 98.7. Most recent pulse was 122, respirations 28, temperature is 99.9, rectal, O2 saturation was 98% on room air. GENERAL APPEARANCE: Age-appropriate male. He is currently sedated after receiving some sedation in the emergency department. He is not verbal at the moment, but the nurse indicated he did use some expletives earlier when he was a bit more agitated. HEENT: Has no OP lesions. He appears to be edentulous. He is resisting attempts at pupil exams. NECK: Supple and symmetric. HEART: Has a 2/6 systolic ejection murmur heard best at the left upper sternal border. LUNGS: Clear bilaterally with no wheezes or rales. ABDOMEN: Soft. Does not appear to be tender to palpation. It is nondistended. There are no masses palpable. EXTREMITIES: Has bilateral above-knee amputations. The stumps are warm and dry. PSYCH: Again, the patient is somewhat sedated. NEURO: The patient has some contractures of the left upper extremity, but otherwise cannot be fully assessed due to sedation. IMAGING: CT abdomen and pelvis shows distal esophageal wall thickening with reflux into the distal esophagus. Bilateral renal cyst. Fecal impaction with changes suggestive of stercoral colitis, occlusion of the [place] aorta just below the level of the renal arteries with no defended flow seen in the [place] vessels or graft below this level. LABORATORY DATA: White count is 13.3, hemoglobin 12, platelets 291. Sodium 139 , potassium 4.4, CO2 is 26, BUN 23, creatinine is 1.05, glucose 84, lactic acid 1.1, AST 13, ALT 13, alkaline phosphatase 54. Urinalysis shows 21-50 red cells, 0-3 white cells. Gastric occult blood is positive. EKG shows sinus rhythm at 96 beats per minute with some LVH, otherwise no acute changes. IMPRESSION AND PLAN: 1. Acute gastrointestinal bleed, appears to be an upper gastrointestinal bleed consistent with the patient's history of distal erosive esophagitis. He does have some reflux and thickening of the distal esophagus on his current CT scan. GI has been consulted. I discussed the case with Dr. Alejandro. Given his current NG tube aspirate, which appears to be about 400 mL and bloody, we will anticipate endoscopy once he is cleared a little better. In the meantime, we will keep him on a Protonix drip and monitor his hemoglobin closely. We will avoid anticoagulations. 2. Constipation with stercoral colitis. We will give a mineral oil enema and continue to follow to see if that will clear. 3. Hypertension. We will hold off on any medications for now, probably because he cannot take p.o. and partly because I want to make sure he does not go hypotensive with the bleeding. 4. Dementia secondary prior from cerebrovascular accident. The patient did require some sedation in the emergency department. He will not be able to take his usual psychotropic medications. We will therefore provide p.r.n. benzodiazepine for any recurrence of agitation. Job ID: [id number] [facility]
[2020-02-14 21:57] LABS: #Basophils 0.1 thou/uL (0.0-0.2); #Eosinphils 0.1 thou/uL (0.0-0.7); #Lymphocytes 1.9 thou/uL (1.20-3.40); #Monocytes 0.8 thou/uL (0.11-0.59); #Neutrophils 7.1 thou/uL (1.40-6.50); %Basophils 0.5 % (0.0-1.0); %Lymphocytes 19.5 % (21.0-51.0); %Monocytes 7.5 % (0.0-10.0); %Neutrophils 71.5 % (42.0-75.0); Hemoglobin 9.8 g/dL (14.0-18.0); Mean Corpuscular HGB CONC 31.3 g/dL (32.0-36.0); Mean Corpuscular Hemoglobin 24.3 pg (27.0-31.0); Mean Corpuscular Volume 77.7 fL (78.0-98.0); Mean Platelet Volume 9.2 fL (7.4-10.4); Platelet Count 248 thou/uL (130-400); RBC Distribution Width 15.7 % (11.5-14.5); Red Blood Cell (RBC) Count 4.02 mill/uL (4.70-6.10); White Blood Cell (WBC) Count 9.9 thou/uL (4.8-10.8)
[2020-02-15 01:35] LABS: #Basophils 0.1 thou/uL (0.0-0.2); #Eosinphils 0.1 thou/uL (0.0-0.7); #Lymphocytes 1.7 thou/uL (1.20-3.40); #Monocytes 0.6 thou/uL (0.11-0.59); %Basophils 1.1 % (0.0-1.0); %Eosinophils 1.3 % (0.0-10.0); %Lymphocytes 19.7 % (21.0-51.0); %Monocytes 7.4 % (0.0-10.0); %Neutrophils 70.6 % (42.0-75.0); Hemoglobin 9.6 g/dL (14.0-18.0); Mean Corpuscular HGB CONC 31.5 g/dL (32.0-36.0); Mean Corpuscular Hemoglobin 24.8 pg (27.0-31.0); Mean Corpuscular Volume 78.7 fL (78.0-98.0); Mean Platelet Volume 9.8 fL (7.4-10.4); Platelet Count 228 thou/uL (130-400); RBC Distribution Width 15.7 % (11.5-14.5); Red Blood Cell (RBC) Count 3.86 mill/uL (4.70-6.10); White Blood Cell (WBC) Count 8.5 thou/uL (4.8-10.8)
[2020-02-15] MEDS ORDERED: metroNIDAZOLE 500 MG in Premix Bag 1 BAG IVPB SCH (02:00)
[2020-02-15] MEDS: Pantoprazole 80 MG, Admixture Fee 1 EACH in Sodium Chloride 0.9% 100 ML IVPB SCH (04:04)
[2020-02-15 06:41] VITALS: BMI 17.2
[2020-02-15] MEDS: Sodium Chloride 0.9% 1,000 ML IV SCH ×2 (07:54→19:53)
[2020-02-15] MEDS ORDERED: Ondansetron PF 4 MG/2 ML Vial ONE (10:41)
[2020-02-15] MEDS ORDERED: Succinylcholine Chloride 20 MG/ML 10 ml SYRINGE FS ONE (10:41)
[2020-02-15] MEDS ORDERED: PROPOFOL 200 MG/20 ML VIAL ONE (10:41)
[2020-02-15] MEDS ORDERED: Dexamethasone 20 MG/5 ML VIAL ONE (10:41)
[2020-02-15] MEDS ORDERED: Sodium Chloride 0.9% (PF) 10 ML VIAL FS PRN (12:04)
--- NOTE | 2020-02-15 14:15 | PDOC.HOSPP ---
- Subjective Encounter Date: 02/15/20 Encounter Time: 14:13 Subjective: Doing well. Awake and conversant. Denies pain. Denies needs. - Objective Vital Signs & Weight: Vital Signs (12 hours) Temp Pulse Resp BP Pulse Ox 02/15/20 07:40 98.8 F 77 18 121/70 100 02/15/20 03:10 98.4 F 86 16 121/74 100 Weight Weight 130 lb 2 oz I&O: 02/14/20 02/15/20 02/16/20 06:59 06:59 06:59 Intake Total 880 Output Total 150 Balance 730 Result Diagrams: 02/15/20 01:28 02/14/20 13:20 Hospitalist ROS - Medication Medications: Active Medications Generic Name Dose Route Start Last Admin Trade Name Freq PRN Reason Stop Dose Admin Sodium Chloride 1,000 mls @ 75 mls/hr 02/14/20 18:00 02/15/20 07:54 Normal Saline 0.9% IV 1,000 mls .[id number] JOSSUE Administration Sodium Chloride 10 ml 02/14/20 21:00 02/15/20 07:54 Flush - Normal Saline IVF 10 ml Q12HR JOSSUE Administration - Exam General Appearance: NAD, awake alert Heart: RRR, no gallops, no rubs, II/IV Respiratory: CTAB, no wheezes, no rales, no ronchi, normal chest expansion, no tachypnea, normal percussion Gastrointestinal: soft, non-tender, non-distended, normal bowel sounds, no palpable masses, no hepatomegaly, no splenomegaly, no bruit Extremities - other findings: B AKA Skin: normal turgor Musculoskeletal: diffuse muscle atrophy Psychiatric: normal affect Hosp A/P (1) Erosive esophagitis Code(s): K22.10 - ULCER OF ESOPHAGUS WITHOUT BLEEDING Status: Acute (2) Upper GI bleed Code(s): K92.2 - GASTROINTESTINAL HEMORRHAGE, UNSPECIFIED Status: Acute (3) Dementia Code(s): F03.90 - UNSPECIFIED DEMENTIA WITHOUT BEHAVIORAL DISTURBANCE Status: Chronic Qualifiers: Dementia type: unspecified type Dementia behavioral disturbance: without behavioral disturbance Qualified Code(s): F03.90 - Unspecified dementia without behavioral disturbance (4) Dysphagia as late effect of stroke Code(s): I69.391 - DYSPHAGIA FOLLOWING CEREBRAL INFARCTION Status: Chronic (5) GERD (gastroesophageal reflux disease) Code(s): K21.9 - GASTRO-ESOPHAGEAL REFLUX DISEASE WITHOUT ESOPHAGITIS Status: Chronic Qualifiers: Esophagitis presence: without esophagitis Qualified Code(s): K21.9 - Gastro -esophageal reflux disease without esophagitis (6) H/O: CVA (cerebrovascular accident) Code(s): Z86.73 - PRSNL HX OF TIA (TIA), AND CEREB INFRC W/O RESID DEFICITS Status: Chronic (7) HLD (hyperlipidemia) Code(s): E78.5 - HYPERLIPIDEMIA, UNSPECIFIED Status: Chronic (8) HTN (hypertension) Code(s): I10 - ESSENTIAL (PRIMARY) HYPERTENSION Status: Chronic Qualifiers: Hypertension type: essential hypertension Qualified Code(s): I10 - Essential (primary) hypertension (9) Hx of AKA (above knee amputation) Code(s): Z89.619 - ACQUIRED ABSENCE OF UNSPECIFIED LEG ABOVE KNEE Status: Chronic (10) PAD (peripheral artery disease) Code(s): I73.9 - PERIPHERAL VASCULAR DISEASE, UNSPECIFIED Status: Chronic (11) Encephalopathy acute Code(s): G93.40 - ENCEPHALOPATHY, UNSPECIFIED Status: Chronic - Plan No evidence of further bleeding. Hgb stable. EGD this morning. No acute bleeding. Esophagitis, gastritis, AVM. Clear liquids. IV Pantoprazole. Continue to monitor counts. Colitis from constipation. Has had two documented BM's here. Had encephalopathy and agitation last evening. Better today.
--- NOTE | 2020-02-15 14:57 | OP ---
DATE OF PROCEDURE: 02/15/2020 PROCEDURE PERFORMED: Esophagogastroduodenoscopy with control of hemorrhage. INDICATION FOR PROCEDURE: Hematemesis and anemia. DESCRIPTION OF PROCEDURE: After the risks and benefits of the procedure were explained to the patient's surrogate including risks of bleeding, infection, perforation, reactions to anesthesia, aspiration and/or pain, informed consent was obtained. The patient was then taken to the endoscopy suite, where general anesthesia was administered with endotracheal tube intubation. Once the patient was intubated and sedated, he was maneuvered into the left lateral decubitus position, followed by introduction of the standard colonoscope into the mouth with intubation of the esophagus, stomach, and the proximal small intestines with the findings listed below. The patient tolerated the procedure well with no immediate perioperative complications. On conclusion of the procedure, all equipment was removed from the patient and he was transferred to PACU in satisfactory condition. FINDINGS: Esophagus: Normal-appearing mucosa was seen in both the proximal and mid esophagus. In the distal esophagus, there were two linear erosions extending proximally from the GE junction around 1 to 2 cm in length, but not extending between adjacent folds of the esophagus. There was no overt ulceration associated with these erosions either. There was no overt ulceration or bleeding associated with these erosions either. Otherwise, there was no evidence of mass lesions or active/recent bleeding. No intervention was taken given the low likelihood of bleeding from this source. Stomach: Two linear areas of increased mucosal erythema were seen in the gastric fundus and extending into the body. One of these linear erosions had minimal amount of blood clot approximately 10 cm from the distal end of the erosion; however, adjacent to was a much larger area of disrupted mucosa with clot material, but no overt ulceration or specific lesion causing bleeding. Given the linear formation of the erythema with a proximal area of increased mucosal erythema and clot formation, these erosions are likely due to NG tube trauma with the larger area of erythema and clot, it was cauterized with argon plasma coagulation with good hemostasis achieved. Otherwise, normal-appearing mucosa was seen in the gastric cardia, fundus, body, antrum, and incisura. There was no evidence of overt ulcerations, active bleeding, or mass lesions. Normal-appearing mucosa was seen in the duodenal bulb; however; a 1 to 2 mm nonbleeding arteriovenous malformation was seen in the second and third portion of the duodenum. This was successfully intervened upon with argon plasma coagulation with good hemostasis achieved. Otherwise, normal-appearing mucosa was seen throughout the visualized duodenum. IMPRESSION: 1. LA grade B reflux-mediated erosive esophagitis (nonbleeding). 2. Linear areas of erythema and clot formation consistent with NG tube trauma in the gastric fundus/body. One of these regions of NG tube trauma was intervened upon with argon plasma coagulation given its significant clot formation overlying was probably the suction port. 3. 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 RECOMMENDATIONS: 1. Would continue to trend his H and H and transfuse as necessary to maintain an H and H of 7/21. 2. Continue to monitor clinically for signs of active GI bleeding. 3. Would refrain from placing NG tube given the significant trauma seen today. 4. Would refrain from any anticoagulation in light of recent GI bleed. 5. If the patient does not exhibit any further episodes of hematemesis, melena, or decrease in his H and H, he could be potentially discharged back to the alf tomorrow. 6. We will continue the patient on pantoprazole 40 mg IV b.i.d. (transfer from PPI drip). We will continue to follow peripherally. Please call with any questions. Job ID: [id number]
[2020-02-15] MEDS: Pantoprazole 40 MG VIAL IVP SCH (19:46)
[2020-02-16 05:17] LABS: #Eosinphils 0.1 thou/uL (0.0-0.7); #Lymphocytes 1.4 thou/uL (1.20-3.40); #Monocytes 0.7 thou/uL (0.11-0.59); #Neutrophils 5.6 thou/uL (1.40-6.50); %Basophils 0.5 % (0.0-1.0); %Eosinophils 0.7 % (0.0-10.0); %Lymphocytes 18.2 % (21.0-51.0); %Monocytes 9.2 % (0.0-10.0); %Neutrophils 71.4 % (42.0-75.0); Hemoglobin 9.4 g/dL (14.0-18.0); Mean Corpuscular HGB CONC 31.2 g/dL (32.0-36.0); Mean Corpuscular Hemoglobin 24.4 pg (27.0-31.0); Mean Corpuscular Volume 78.2 fL (78.0-98.0); Mean Platelet Volume 10.1 fL (7.4-10.4); Platelet Count 235 thou/uL (130-400); RBC Distribution Width 15.7 % (11.5-14.5); Red Blood Cell (RBC) Count 3.86 mill/uL (4.70-6.10); White Blood Cell (WBC) Count 7.8 thou/uL (4.8-10.8)
[2020-02-16 05:40] LABS: Anion Gap 11 mmol/L (10-20); BUN (Urea Nitrogen) 10 mg/dL (8.4-25.7); Calc. Creatinine Clearance 75 mL/min (70-130); Calcium 8.5 mg/dL (7.8-10.44); Carbon Dioxide 25 mmol/L (23-31); Chloride 109 mmol/L (98-107); Estimated GFR-MDRD Greater than 90; Glucose 88 mg/dL (80-115); Potassium 4.1 mmol/L (3.5-5.1); Sodium 141 mmol/L (136-145)
[2020-02-16] MEDS: Pantoprazole 40 MG VIAL IVP SCH (08:40)
[2020-02-16] MEDS: Sodium Chloride 0.9% 1,000 ML IV SCH ×2 (08:43→10:20)
--- NOTE | 2020-02-16 14:11 | PRG ---
DATE OF SERVICE: 02/16/2020 SUBJECTIVE: The patient has no further evidence of bleeding. He was evaluated by Speech Pathology with swallowing function at baseline. No new events. There is no nausea or vomiting. The only complaint is phantom pain in his left leg. OBJECTIVE: VITAL SIGNS: Temperature is 99, blood pressure 106/67, pulse of 89. GENERAL: He is awake and alert, no distress. HEENT: Shows anicteric sclerae. CV: Shows normal S1 and S2 with 2/6 systolic murmur. CHEST: Shows breath sounds. Poor excursion. ABDOMEN: Soft. No distention. No tenderness. He has active bowel sounds. EXTREMITIES: Significant for bilateral amputations. LABORATORY DATA: WBCs 7.8, hemoglobin 9.4, platelet count of 235. Electrolytes within normal range. Creatinine 0.85. ASSESSMENT: 1. Status post limited upper gastrointestinal bleed, likely from erosive esophagitis. Only other small duodenal arteriovenous malformation was visualized along with NG tube trauma on esophagogastroduodenoscopy yesterday. Now, blood count remained stable. 2. Constipation with suggestion of stercoral proctitis on CT. The patient has had bowel movements this admission. 3. Multiple medical problems including cerebrovascular accident, peripheral vascular disease, hypertension, and gastroesophageal reflux disease with history of esophagitis, all at baseline. RECOMMENDATIONS: 1. We will advance the patient to pureed diet. 2. He can be discharged on pantoprazole 40 mg p.o. b.i.d. Job ID: [id number]
--- NOTE | 2020-02-16 15:44 | PQF ---
CLINICAL DOCUMENTATION IMPROVEMENT CLARIFICATION FORM: ICD-10 Updated PLEASE DO AN ADDENDUM TO THE PROGRESS NOTE WITH ANY DOCUMENTATION UPDATES OR ADDITIONS AND CARRY THROUGH TO DC SUMMARY. THANK YOU. DATE: 02/16/20 ATTN: DR. JARRELL Please exercise your independent, professional judgment in responding to the clarification form. Clinical indicators are provided on the bottom of this form for your review Please check appropriate box(s) to clarify if the following diagnosis has been ruled in or ruled out: "SEPSIS" [ ] Ruled in diagnosis [ ] Continue to treat [ ] Resolved [ x ] Ruled out diagnosis [ ] Improving [ ] Cannot rule out diagnosis [ ] Other diagnosis [ ] Unable to determine In addition, please specify: Present on Admission (POA): [ ] Yes [ ] No [ ] Unable to determine For continuity of documentation, please document condition throughout progress notes and discharge summary. Thank You. CLINICAL INDICATORS - SIGNS / SYMPTOMS / LABS / RESULTS AND LOCATION IN MR ER NOTE: "SEPSIS" WBC 02/13: 13.3 PULSE 106, 120, 126 RISKS: COLITIS (H&P 02/14) H/O COPD (H&P 02/14) H/O PVD (H&P 02/14) TREATMENT: IV VANCOMYCIN (ER-02/13) IV CEFEPIME (ER) IV FLAGYL (02/14) IV FLUIDS (ER-PRESENT) BLOOD AND URINE CULTURES 02/13 (This form is maintained as a part of the permanent medical record) 2014 [employer]. All Rights Reserved [email or web address] Office: [phone] [facility]
--- NOTE | 2020-02-16 15:50 | PQF ---
CLINICAL DOCUMENTATION IMPROVEMENT CLARIFICATION FORM: ICD-10 Updated PLEASE DO AN ADDENDUM TO THE PROGRESS NOTE WITH ANY DOCUMENTATION UPDATES OR ADDITIONS AND CARRY THROUGH TO DC SUMMARY. THANK YOU. DATE: 02/16/20 ATTN: DR. JARRELL Please exercise your independent, professional judgment in responding to the clarification form. Clinical indicators are provided on the bottom of this form for your review Please check appropriate box(s): [ ] Acute blood loss anemia [ ] Post-op anemia related to acute blood loss [ ] Anemia: [ ] Aplastic [ ] Nutritional [ ] Drug induced (specify) ___ [ ] Hemolytic [ ] Hereditary [ ] Acquired [ ] Autoimmune [ ] Non-autoimmune [ ] Enzyme disorder [ ] Chronic Anemia: [ ] Blood loss [ ] Hemolytic [ ] Simple [ ] Due to Vitamin B12 Deficiency [ ] Other [ ] Other diagnosis [ ] Unable to determine In addition, please specify: Present on Admission (POA): [ ] Yes [ ] No [ ] Unable to determine For continuity of documentation, please document condition throughout progress notes and discharge summary. Thank You. CLINICAL INDICATORS - SIGNS / SYMPTOMS / LABS / RESULTS AND LOCATION IN EMR HGN/HCT 02/13: 12.0 / 38.7 HGN/HCT 01/26/23: 9.4 / 30.2 RISKS: EROSIVE ESOPHAGITIS WITH UPPER GI BLEEDING (PROGRESS NOTE 02/14) TREATMENT: GI CONSULT 02/13 BLOOD TRANSFUSION SERIAL LABS EGD WITH CONTROL OF HEMORRHAGE (02/14) (This form is maintained as a part of the permanent medical record) 2014 [employer]. All Rights Reserved [email or web address] Office: [phone] [facility]
[2020-02-16 16:35] VITALS: BP 170/99; TEMP 98.1
--- NOTE | 2020-02-17 10:43 | DIS ---
DATE OF ADMISSION: 02/14/2020 DATE OF DISCHARGE: 02/16/2020 DISCHARGE DIAGNOSES: 1. Acute gastrointestinal bleed. 2. Acute blood loss anemia. 3. Constipation. 4. Stercoral colitis. 5. Erosive esophagitis. 6. Small duodenal arteriovenous malformation. 7. Vascular dementia. 8. Acute metabolic encephalopathy. 9. History of dysphagia as a late effect of cerebrovascular accident. 10. History of gastroesophageal reflux. 11. History of cerebrovascular accident. 12. Hypertension. 13. Hyperlipidemia. 14. History of bilateral gdhpy-fwt-ofuz amputations. 15. Peripheral arterial disease. HISTORY OF PRESENT ILLNESS: This patient is a 64-year-old male with a history of prior CVA resulting in dysphagia and some vascular-related dementia. He also has severe peripheral vascular disease and bilateral taigz-kbo-vroy amputations as well as chronic medical conditions of hypertension and hyperlipidemia. He presented from the intermediate, where he was noted to have coffee-grounds emesis. In the emergency department, the patient's initial hemoglobin was relatively stable. He had a CT of the abdomen and pelvis showing some distal esophageal wall thickening, fecal impaction with suggestion of stercoral colitis. There is also evidence of ongoing vascular disease, what appeared to be occlusion of the prairie band aorta just below the level of the renal arteries with no definitive flow seen within the pra[place] vessel or graft below that level. HOSPITAL COURSE: The patient was admitted. He initially had an NG tube placed in the emergency department, which was evacuating dark substance, which appeared to be blood. His hemoglobin declined a bit from an initial level of 12.0 down to 9.4. He was seen in consultation by GI and subsequently underwent endoscopy, which revealed some persistent erosive esophagitis consistent with his history and a small duodenal AVM with no evidence of ongoing bleeding. Once the patient was monitored a bit longer on PPIs, his hemoglobin remained stable, and he had no further evidence of bleeding. He was given a mineral oil enema and had good results. He was felt to be stable for discharge. Of note, the patient did have an episode of some agitation, which was felt to be acute metabolic encephalopathy overlying his dementia. This resolved without significant intervention. He was back to his baseline. He was able to tolerate a regular diet. PHYSICAL EXAMINATION: VITAL SIGNS: On the day of discharge, temperature was 98.1, pulse 96, respirations 18, O2 saturation 95% on room air, blood pressure ranged from 106/67 to 170/99. GENERAL: He was awake and alert. He would answer some simple questions. HEART: Regular without murmurs. LUNGS: Clear ABDOMEN: Benign. DISPOSITION: The patient is discharged back to the nursing facility in stable condition. MEDICATIONS: Will include pantoprazole 40 mg one p.o. b.i.d. Continue his usual medications including; 1. Docusate 100 mg b.i.d. 2. Lisinopril 20 mg daily. 3. Tylenol p.r.n. 4. Metoprolol tartrate 12.5 mg b.i.d. 5. Folic acid one p.o. daily. 6. Divalproex sodium 250 mg b.i.d. 7. Amlodipine 5 mg daily. 8. Venlafaxine 75 mg daily. 9. Benztropine 1 mg b.i.d. 10. Pravastatin 40 mg q.h.s. 11. Ferrous sulfate 7.5 mL b.i.d. 12. Milk of Magnesia p.r.n. 13. Tramadol 50 mg q.8 hours p.r.n. DIET: He is to have an unrestricted diet. ACTIVITY: As tolerated. He is to follow up with his PCP, and he can return to the hospital at anytime he has the need to do so. TIME SPENT: In discharge activities was greater than 30 minutes. Job ID: [id number]
--- NOTE | 2020-02-20 01:44 | PQF ---
LUZ MONROY DAVID R MD [id number] [facility] [id number] CLINICAL DOCUMENTATION CLARIFICATION FORM: POST DISCHARGE Addendum to original discharge summary date: ____ Late entry note date: __ DATE: 02/20/20 ATTN: Yevgeniy Canas Please exercise your independent, professional judgment in responding to the clarification form. Clinical indicators are provided on the bottom of this form for your review Can you please further clarify the specificity of Encephalopathy? Please check appropriate box(s): [ ] Encephalopathy: Type: [ ] Acute [ ] Subacute [ ] Chronic Etiology: [ ] Hypertensive [ ] Metabolic [ ] Toxic [ ] Transient Alteration of Awareness [ ] Other diagnosis please specify [ ] Unable to determine In addition, please specify: Present on Admission (POA): [ ] Yes [ ] No [ ] Unable to determine For continuity of documentation, please document condition throughout progress notes and discharge summary. Thank You. CLINICAL INDICATORS - SIGNS / SYMPTOMS / LABS Hospitalist PN 02/14 pg.3- Acute encephalopathy Hospitalist PN 02/14 pg.4- has encephalopathy and agitation last evening PN 02/15 pg.1- upper GI bleed likely from erosive esophagitis RISK FACTORS Hematemesis- OP report pg.1 Anemia- Op report pg.1 Dementia- H and P pg.1 GERD- H and P pg.1 Hx of CVA- H and P pg.1 TREATMENTS: Control of bleeding- OP Report pg.1 IV Fluids- MAR H and H monitoring- Laboratory GI Consult- Dr Alejandro Abdomen X ray 02/13 Abdomen /Pelvis CT 02/13 (This form is maintained as a part of the permanent medical record) 2014 [email or web address] All Rights Reserved [email or web address]
--- NOTE | 2020-02-20 01:50 | PQF ---
SAP Teacher Assistant Crystal Reports Winform Viewer LUZ MONROY DAVID R MD [id number] [facility]253 [id number] CLINICAL DOCUMENTATION CLARIFICATION FORM: POST DISCHARGE Addendum to original discharge summary date: ____ Late entry note date: __ DATE: 02/20/20 ATTN: Yevgeniy Canas Please exercise your independent, professional judgment in responding to the clarification form. Clinical indicators are provided on the bottom of this form for your review Can you please further clarify the etiology of hematemesis/GI Bleed? Defer to GI. Hematemesis/ GI Bleed due to: Please check appropriate box(s): [ ] Esophagitis with GERD / Reflux [ ] Ulcerative Esophagitis [ ] Duodenal AVM [ ] Gastritis [ ] Other Esophagitis [ ] Other diagnosis please specify [ ] Unable to determine n addition, please specify: Present on Admission (POA): [ ] Yes [ ] No [ ] Unable to determine For continuity of documentation, please document condition throughout progress notes and discharge summary. Thank You. CLINICAL INDICATORS - SIGNS / SYMPTOMS / LABS PN 02/15 pg.1- upper GI bleed likely from erosive esophagitis OP Report pg.2- LA grade B reflux-mediated erosive esophagitis (non bleeding) OP Report pg.2- A 1 to 2mm AVM (seems to be the likely source of bleeding Hospitalist PN 02/14 pg.4- Esophagitis, gastritis, AVM RISK FACTORS Hematemesis- OP report pg.1 Anemia- Op report pg.1 Dementia- H and P pg.1 GERD- H and P pg.1 Hx of CVA- H and P pg.1 TREATMENT: Control of bleeding- OP Report pg.1 EGD- OP report IV Fluids- MAR H and H monitoring- Laboratory GI Consult- Dr Alejandro Abdomen X ray 02/13 Abdomen /Pelvis CT 02/13 (This form is maintained as a part of the permanent medical record) 2014 [employer] All Rights Reserved [email or web address]
== END 2020-02-16 16:03 | DRG 381 ==
LOC: ERS 12:47 → 2NO 16:29 → T4-B 02-15 12:48
PROVIDERS: ADMIT Internal Medicine; ATTEND Internal Medicine
PROC: 0W3P8ZZ Control Bleeding in Gastrointestinal Tract, Via Natural or Artificial Opening Endoscopic (ICD-10-PCS; principal; 2020-02-15)
DX: K22.11 Ulcer of esophagus with bleeding (principal); F01.51 Vascular dementia, unspecified severity, with behavioral disturbance; I69.354 Hemiplegia and hemiparesis following cerebral infarction affecting left non-dominant side; K31.811 Angiodysplasia of stomach and duodenum with bleeding; K92.0 Hematemesis; E78.5 Hyperlipidemia, unspecified; I10 Essential (primary) hypertension; J44.9 Chronic obstructive pulmonary disease, unspecified; F41.9 Anxiety disorder, unspecified; R13.12 Dysphagia, oropharyngeal phase; K21.0 Gastro-esophageal reflux disease with esophagitis; F32.9 Major depressive disorder, single episode, unspecified; I73.9 Peripheral vascular disease, unspecified; D50.9 Iron deficiency anemia, unspecified; K62.89 Other specified diseases of anus and rectum; K59.00 Constipation, unspecified; Z79.899 Other long term (current) drug therapy; Z89.612 Acquired absence of left leg above knee; Z89.611 Acquired absence of right leg above knee; Z78.1 Physical restraint status; I69.391 Dysphagia following cerebral infarction; I69.320 Aphasia following cerebral infarction; I69.318 Other symptoms and signs involving cognitive functions following cerebral infarction
CPT/HCPCS: 36415; 51701; 71045; 74018; 74177; 80048; 80053; 81003; 81015; 82271; 83605; 85025; 86850; 86870; 86900; 86901; 86922; 87040; 87086; 93005; 96361; 96365; 96367; 96375; 96376; C9113; J0692; J1100; J2060; J2405; J2704; J3370; J3490; J7050; Q9967

== ENCOUNTER 2020-11-11 11:18 | Inpatient (IN) | payer OTHER ==
--- NOTE | 2020-11-11 12:16 | RAD ---
EXAM: Single view of the chest HISTORY: Covid positive with low blood pressure and decreased oxygen saturation COMPARISON: 02/14/2020 FINDINGS: Single view of the chest shows an enlarged but stable cardiomediastinal silhouette. Increa sed interstitial lung markings are present. There appears be superimposed airspace opacity in the left lower lobe. Degenerative changes are seen in the spine. IMPRESSION: Possible left lower lobe infiltrate.
[2020-11-11 12:32] LABS: ALT (SGPT) 15 U/L (8-55); AST (SGOT) 24 U/L (5-34); Alkaline Phosphatase 41 U/L (40-110); Anion Gap 16 mmol/L (10-20); BUN (Urea Nitrogen) 45 mg/dL (8.4-25.7); Bilirubin, Total 0.3 mg/dL (0.2-1.2); Calc. Creatinine Clearance 0 mL/min (70-130); Calcium 7.6 mg/dL (7.8-10.44); Carbon Dioxide 20 mmol/L (23-31); Chloride 119 mmol/L (98-107); Globulin 3.6 g/dL (2.4-3.5); Glucose 108 mg/dL (80-115); Potassium 4.6 mmol/L (3.5-5.1); Protein, Total 6.6 g/dL (5.8-8.1); Sodium 150 mmol/L (136-145)
[2020-11-11] MEDS ORDERED: Cefepime 2 GM VIAL ONE (13:07)
[2020-11-11 13:29] LABS: #Lymphocytes 1.5 thou/uL (1.20-3.40); #Monocytes 0.6 thou/uL (0.11-0.59); #Neutrophils 3.8 thou/uL (1.40-6.50); %Basophils 0.6 % (0.0-1.0); %Eosinophils 0.2 % (0.0-10.0); %Lymphocytes 25.6 % (21.0-51.0); %Monocytes 10.8 % (0.0-10.0); %Neutrophils 62.8 % (42.0-75.0); Hemoglobin 11.8 g/dL (14.0-18.0); Mean Corpuscular HGB CONC 29.8 g/dL (32.0-36.0); Mean Corpuscular Hemoglobin 23.5 pg (27.0-31.0); Mean Corpuscular Volume 78.7 fL (78.0-98.0); Mean Platelet Volume 11.1 fL (7.4-10.4); Platelet Count 170 thou/uL (130-400); RBC Distribution Width 16.1 % (11.5-14.5); Red Blood Cell (RBC) Count 5.04 mill/uL (4.70-6.10)
[2020-11-11 13:47] LABS: Anisocytosis SLIGHT = 6-15 cells (100X) (0-5/hpf); Hypochromia SLIGHT = 6-15 cells (100X) (0-5/hpf); Large Platelets SLIGHT; MDiff Complete? YES; Ovalocytes SLIGHT = 2-5 cells (100X) (0-1/hpf); Platelet Morphology Comment Appears Adequate; Polychromasia SLIGHT = 2-3 cells (100X) (0-2/hpf); Schistocytes SLIGHT = 2-5 cells (100X) (0-1/hpf); Target Cells SLIGHT = 2-5 cells (100X) (0-1/hpf); Tear Drops SLIGHT = 2-5 cells (100X) (0-1/hpf)
[2020-11-11] MEDS ORDERED: Acetaminophen 325 MG TAB ONE (13:58)
[2020-11-11] MEDS ORDERED: Vancomycin HCl 1.25 GM in Sodium Chloride 0.9% 250 ML 250 ML IVPB SCH (14:45)
--- NOTE | 2020-11-11 15:55 | PDOC.HHP ---
Hospitalist HPI - History of Present Illness Sent from [facility] for hypotension and hypoxia History of Present Illness: 65-year-old -[place] male who lives at [facility], as per report patient had low blood pressure and low oxygen saturation, he was tested positive for COVID-19 last Sunday, when paramedics was called at that time patient was normotensive and he was saturating normal, patient was brought to emergency room, patient has low-grade fever, patient is not able to provide any history, in the emergency room routine blood test showed hyponatremia, acute kidney injury, patient was appeared clinically dehydrated, patient had a chest x-ray which showed left lower lobe pneumonia, in the emergency room patient was given broad-spectrum antibiotic with the Levaquin and vancomycin and cefepime, he was also given Tylenol and IV fluid, subsequently patient was admitted to [facility] floor. When I saw this patient at the time patient is on room air, he is not allowing me to examine thoroughly, he is also not able to provide any history, no family member present bedside, ED Course: In the emergency room patient is given Levaquin, vancomycin, cefepime, IV fluid, Tylenol VITAL SIGNS Xochitl Nov 11, 2020 11:21 BILLY Michael Jordan BP: 117/78, MAP: 91, Pulse: 94, Resp: 21, Temp: 100.4 (Oral), Pain: UTR, O2 sat: 94, Time: 11/11/2020 11:21. VITAL SIGNS Xochitl Nov 11, 2020 12:11 BILLY Michael Jordan BP: 113/83, MAP: 93, Pulse: 84, Resp: 20, Pain: UTR, O2 sat: 94 on (Room Air), Time: 11/11/2020 12:11. VITAL SIGNS Xochitl Nov 11, 2020 13:17 BILLY Michael Jordan BP: 103/78, MAP: 86, Pulse: 79, Resp: 19, Temp: 101.0 (Oral), Pain: utr, O2 sat: 96 on (Room Air), Time: 11/11/2020 13:17. VITAL SIGNS Xochitl Nov 11, 2020 14:11 BILLY Michael Jordan BP: 108/73, MAP: 84, Pulse: 85, Resp: 19, Temp: 97.6 (Oral), Pain: UTR, O2 sat: 95 on (Room Air), Time: 11/11/2020 14:11. VITAL SIGNS Xochitl Nov 11, 2020 15:09 BILLY Michael, Yanick BP: 110/75, MAP: 86, Pulse: 88, Resp: 17, Temp: 99.8 (Oral), Pain: UTR, O2 sat: 98 on (Room Air), Time: 11/11/2020 15:09. Hospitalist ROS - Review of Systems ROS unobtainable: due to mental status - Medication Medications: Home medication Medication Instructions Recorded Confirmed Type Docusate [Colace] 100 mg PO BID 07/10/13 02/14/20 History Lisinopril [Zestril] 20 mg PO DAILY 07/10/13 02/14/20 History Acetaminophen [Tylenol Regular 650 mg PO Q6HR PRN 06/06/16 02/14/20 History Strength] Divalproex Sodium [Divalproex 250 mg PO BID 06/06/16 02/14/20 History Sodium ER] Folic Acid [Folvite] 1 mg PO DAILY 06/06/16 02/14/20 History Metoprolol Tartrate 12.5 mg PO BID 06/06/16 02/14/20 History Amlodipine [Norvasc] 5 mg PO DAILY 10/03/19 02/14/20 History Benztropine [Cogentin] 1 mg PO BID 10/03/19 02/14/20 History Pravastatin Sodium [Pravachol] 40 mg PO HS 10/03/19 02/14/20 History Venlafaxine HCl [Effexor] 75 mg PO DAILY 10/03/19 02/14/20 History Ferrous Sulfate 7.5 ml PO BID 10/04/19 02/14/20 History Magnesium Hydroxide [Milk of 40 ml PO Q24H PRN 10/04/19 02/14/20 History Magnesia] traMADol HCl [Tramadol HCl] 50 mg PO Q8H PRN 10/04/19 02/14/20 History Pantoprazole [Protonix] 40 mg PO BID #60 tab 02/16/20 Rx Allergies No Known Allergies Allergy (Verified 02/16/20 00:52) Resuscitation Status - Order Detail: 11/11/20 15:09 Resuscitation Status Routine Resuscitation Status: FULL: Full Resuscitation Hospitalist History - Past Medical History Other Medical History: Gastroesophageal reflux disease Hypertension Dyslipidemia Dementia History of CVA with left-sided hemiplegia with aphasia Bilateral amputee COPD Contracture of left hand - Past Surgical History Other Surgical History: Bilateral above-knee amputation Past psychiatric history anxiety and depression, dementia - Social History Other Social History: Patient lives at [facility], no history of tobacco or alcohol or illicit drug abuse - Exam General Appearance: NAD, ill appearing Eye: PERRL ENT: normocephalic atraumatic, no oropharyngeal lesions Neck: supple, symmetric, no JVD Heart: RRR, no murmur, no gallops, no rubs Respiratory: no wheezes, no rales, no ronchi Gastrointestinal: soft, non-tender, non-distended, normal bowel sounds Skin: normal turgor Musculoskeletal: normal tone Psychiatric: normal affect, normal behavior Hospitalist Results - Labs Result Diagrams: 11/11/20 13:18 11/11/20 11:48 Lab results: WBC 6.0 thou/uL (4.8-10.8) 11/11/20 13:18 Hgb 11.8 g/dL (14.0-18.0) L 11/11/20 13:18 Hct 39.7 % (42.0-52.0) L 11/11/20 13:18 MCV 78.7 fL (78.0-98.0) 11/11/20 13:18 Plt Count 170 thou/uL (130-400) 11/11/20 13:18 Neutrophils % 62.8 % (42.0-75.0) 11/11/20 13:18 Sodium 150 mmol/L (136-145) H 11/11/20 11:48 Potassium 4.6 mmol/L (3.5-5.1) 11/11/20 11:48 Chloride 119 mmol/L (98-107) H 11/11/20 11:48 Carbon Dioxide 20 mmol/L (23-31) L 11/11/20 11:48 BUN 45 mg/dL (8.4-25.7) H 11/11/20 11:48 Creatinine 2.58 mg/dL (0.7-1.3) H 11/11/20 11:48 Glucose 108 mg/dL (80-115) 11/11/20 11:48 Lactic Acid 1.4 mmol/L (0.5-2.2) 11/11/20 11:48 Calcium 7.6 mg/dL (7.8-10.44) L 11/11/20 11:48 Total Bilirubin 0.3 mg/dL (0.2-1.2) 11/11/20 11:48 AST 24 U/L (5-34) 11/11/20 11:48 ALT 15 U/L (8-55) 11/11/20 11:48 Alkaline Phosphatase 41 U/L (40-110) 11/11/20 11:48 Serum Total Protein 6.6 g/dL (5.8-8.1) 11/11/20 11:48 Albumin 3.0 g/dL (3.4-4.8) L 11/11/20 11:48 - EKG Interpretation EK lead EKG shows normal sinus rhythm, Rate (beats per minute): 84, with no ectopics, Conduction normal, ST segments normal, T waves, flattened, Leads affected: III, Leads affected: V1, Leads affected: V2, [place] normal, Other findings include:, Q waves in III, Q waves in aVf, Q waves in V1, Q waves in V2, Clinical impression:, non-specific EKG. - Radiology Interpretation Chest x-ray Status: image reviewed by me Additional Comment: FINDINGS: Single view of the chest shows an enlarged but stable cardiomediastinal silhouette. Increa sed interstitial lung markings are present. There appears be superimposed airspace opacity in the left lower lobe. Degenerative changes are seen in the spine. IMPRESSION: Possible left lower lobe infiltrate. Hospitalist H&P A/P - Problem (1) Acute kidney failure Status: Acute (2) Hypernatremia Code(s): E87.0 - HYPEROSMOLALITY AND HYPERNATREMIA Status: Acute (3) Dehydration Code(s): E86.0 - DEHYDRATION Status: Acute (4) Left lower lobe pneumonia Code(s): J18.9 - PNEUMONIA, UNSPECIFIED ORGANISM Status: Acute (5) COVID-19 Code(s): U07.1 - COVID-19 Status: Acute (6) Dementia Code(s): F03.90 - UNSPECIFIED DEMENTIA WITHOUT BEHAVIORAL DISTURBANCE Status: Chronic Qualifiers: Dementia type: unspecified type Dementia behavioral disturbance: without behavioral disturbance Qualified Code(s): F03.90 - Unspecified dementia without behavioral disturbance (7) Dysphagia as late effect of stroke Code(s): I69.391 - DYSPHAGIA FOLLOWING CEREBRAL INFARCTION Status: Chronic (8) GERD (gastroesophageal reflux disease) Code(s): K21.9 - GASTRO-ESOPHAGEAL REFLUX DISEASE WITHOUT ESOPHAGITIS Status: Chronic Qualifiers: Esophagitis presence: without esophagitis Qualified Code(s): K21.9 - Gastro-esophageal reflux disease without esophagitis (9) H/O: CVA (cerebrovascular accident) Code(s): Z86.73 - PRSNL HX OF TIA (TIA), AND CEREB INFRC W/O RESID DEFICITS Status: Chronic (10) HLD (hyperlipidemia) Code(s): E78.5 - HYPERLIPIDEMIA, UNSPECIFIED Status: Chronic (11) HTN (hypertension) Code(s): I10 - ESSENTIAL (PRIMARY) HYPERTENSION Status: Chronic Qualifiers: Hypertension type: essential hypertension Qualified Code(s): I10 - Essential (primary) hypertension (12) Hx of AKA (above knee amputation) Code(s): Z89.619 - ACQUIRED ABSENCE OF UNSPECIFIED LEG ABOVE KNEE Status: Chronic (13) PAD (peripheral artery disease) Code(s): I73.9 - PERIPHERAL VASCULAR DISEASE, UNSPECIFIED Status: Chronic - Plan Plan: Regarding acute kidney failure, patient has clinical dehydration, will continue with dextrose half-normal saline at 100 mL/h, will repeat renal function tomorrow, will check urine analysis, will also check urine sodium and creatinine Regarding dehydration as mentioned above continue IV fluid and repeat labs tomorrow Regarding hypernatremia which is appear to be due to volume depletion and free water deficit, patient will need IV fluid with isotonic solution Regarding left lower lobe pneumonia which may be related with healthcare associated pneumonia versus Covid pneumonia, at this point will start broad- spectrum antibiotic coverage with cefepime and azithromycin, will follow up on culture result Regarding COVID-19 status patient is not a candidate for any therapy at this point, will continue vitamin supplementation and supportive care, patient is on room air, will will monitor for any deterioration, symptomatic treatment Regarding his hypertension we will hold on blood pressure medication for today and will resume when blood pressure improves Regarding his anxiety depression and dementia will start selected medication as per [facility] medication DVT prophylaxis Heparin 5000 unit subcu twice daily GI prophylaxis Protonix 40 mg p.o. daily CODE STATUS full code Disposition plan based on clinical course.
[2020-11-11] MEDS ORDERED: Zolpidem Tartrate 5 MG TAB PO PRN (19:08)
[2020-11-11] MEDS ORDERED: Cepastat Lozenges 1 LOZ PO PRN (19:08)
[2020-11-11] MEDS ORDERED: Benzonatate 100 MG CAP PO PRN (19:08)
[2020-11-11] MEDS ORDERED: Sodium Chloride 0.65% Nasal 44 ML BOT EA NARE PRN (19:08)
[2020-11-11] MEDS ORDERED: Bisacodyl 10 MG SUPP PR PRN (19:08)
[2020-11-11] MEDS ORDERED: hydrALAZINE 20 MG/ML VIAL SLOW IVP PRN (19:08)
[2020-11-11] MEDS ORDERED: traMADol HCl 50 MG TAB PO PRN (19:08)
[2020-11-11] MEDS ORDERED: Ondansetron ODT 4 MG TAB PO PRN (19:08)
[2020-11-11] MEDS ORDERED: Diabetic Tussin 200 MG/10 ML UDCUP PO PRN (19:08)
[2020-11-11] MEDS ORDERED: Pharmacy to Dose : CEFEPIME IVPB PRN (19:08)
[2020-11-11] MEDS ORDERED: Calcium Carbonate 500 MG ChewTAB PO PRN ×2 (19:08)
[2020-11-11] MEDS ORDERED: Ondansetron PF 4 MG/2 ML Vial IVP PRN (19:08)
[2020-11-11] MEDS ORDERED: Senokot S 8.6-50 MG TAB PO PRN (19:08)
[2020-11-11] MEDS ORDERED: Loratadine 10 MG TAB PO PRN (19:08)
[2020-11-11] MEDS ORDERED: Loperamide HCl 2 MG CAP PO PRN (19:08)
[2020-11-11] MEDS ORDERED: Guaifenesin DM 100-10/5 ML UDCUP PO PRN (19:08)
[2020-11-11 19:37] VITALS: BMI 18.4
[2020-11-11] MEDS: Dextrose 5 %-0.45 % NaCl 1,000 ML IV SCH (19:52)
[2020-11-11] MEDS: Benztropine 1 MG TAB PO SCH (20:07)
[2020-11-11] MEDS: Docusate 100 MG CAP PO SCH (20:07)
[2020-11-11] MEDS: Atorvastatin Calcium 10 MG TAB PO SCH (20:08)
[2020-11-11] MEDS: Azithromycin 500 MG in Sodium Chloride 0.9% 250 ML 250 ML IVPB SCH (20:08)
[2020-11-11] MEDS: Heparin 5,000 UNITS/ML VIAL SC SCH (20:08)
[2020-11-12] MEDS: HYDROcodone/Acetaminophen 5/325 mg Tablet PO PRN (02:18)
[2020-11-12] MEDS: Zinc Sulfate 220 MG CAP PO SCH (08:09)
[2020-11-12] MEDS: Docusate 100 MG CAP PO SCH ×2 (08:09→21:06)
[2020-11-12] MEDS: Heparin 5,000 UNITS/ML VIAL SC SCH ×2 (08:09→21:07)
[2020-11-12] MEDS: Dextrose 5 %-0.45 % NaCl 1,000 ML IV SCH ×2 (08:09→21:30)
[2020-11-12] MEDS: Benztropine 1 MG TAB PO SCH ×2 (08:09→21:06)
[2020-11-12] MEDS: Ascorbic Acid 500 mg Chewable Tablet PO SCH (08:09)
[2020-11-12] MEDS: Folic Acid 1 MG TAB PO SCH (08:09)
[2020-11-12] MEDS: Acetaminophen 325 MG TAB PO PRN ×2 (08:57→17:40)
--- NOTE | 2020-11-12 09:50 | PDOC.HOSPP ---
- Subjective Encounter Date: 11/12/20 Encounter Time: 09:00 Subjective: Patient seen and examined. No new complaints. No overnight events - Objective Vital Signs & Weight: Vital Signs (12 hours) Temp Pulse Resp BP Pulse Ox 11/12/20 03:00 98.7 F 99 20 125/82 93 L 11/11/20 23:45 99.6 F 108 H 20 122/82 94 L Weight Weight 121 lb 7.595 oz Result Diagrams: 11/11/20 13:18 11/11/20 11:48 EKG Reviewed by me: Yes Hospitalist ROS - Review of Systems ROS unobtainable: due to mental status - Medication Medications: Active Medications Generic Name Dose Route Start Last Admin Trade Name Freq PRN Reason Stop Dose Admin Acetaminophen 650 mg 11/11/20 19:08 11/12/20 08:57 Acetaminophen 325 Mg Tab PO 650 mg Q4H PRN Administration Headache/Fever/Mild Pain (1-3) Hydrocodone Bitart/Acetaminophen 1 tab 11/11/20 19:08 11/12/20 02:18 Hydrocodone/Acetaminophen 5/325 Mg Tablet PO 1 tab Q4H PRN Administration Moderate Pain (4-6) Ascorbic Acid 1,000 mg 11/12/20 09:00 11/12/20 08:09 Ascorbic Acid 500 Mg Chewable Tablet PO 1,000 mg DAILY JOSSUE Administration Atorvastatin Calcium 10 mg 11/11/20 21:00 11/11/20 20:08 Atorvastatin Calcium 10 Mg Tab PO 10 mg HS JOSSUE Administration Benztropine Mesylate 1 mg 11/11/20 21:00 11/12/20 08:09 Benztropine 1 Mg Tab PO 1 mg BID JOSSUE Administration Divalproex Sodium 250 mg 11/11/20 21:00 11/12/20 08:57 Divalproex Sodium Er 250 Mg Tab PO 250 mg BID JOSSUE Administration Docusate Sodium 100 mg 11/11/20 21:00 11/12/20 08:09 Docusate 100 Mg Cap PO 100 mg BID JOSSUE Administration Folic Acid 1 mg 11/12/20 09:00 11/12/20 08:09 Folic Acid 1 Mg Tab PO 1 mg DAILY JOSSUE Administration Heparin Sodium (Porcine) 5,000 units 11/11/20 21:00 11/12/20 08:09 Heparin 5,000 Units/Ml Vial SC 5,000 units Q12HR JOSSUE Administration Azithromycin 500 mg/ Sodium 250 mls @ 250 mls/hr 11/11/20 20:00 11/11/20 20:08 Chloride IVPB 250 mls Q24HR JOSSUE Administration Dextrose/Sodium Chloride 1,000 mls @ 75 mls/hr 11/11/20 19:08 11/12/20 08:09 D5 1/2 Ns IV 1,000 mls .[id number] JOSSUE Administration Pantoprazole Sodium 40 mg 11/12/20 09:00 11/12/20 08:09 Pantoprazole 40 Mg Tab PO 40 mg DAILY JOSSUE Administration Venlafaxine HCl 75 mg 11/12/20 09:00 11/12/20 08:09 Venlafaxine Hcl 75 Mg Tab PO 75 mg DAILY JOSSUE Administration Vitamin E 200 units 11/12/20 09:00 11/12/20 08:10 Vitamin E 200 Units Cap PO 200 units DAILY JOSSUE Administration Zinc Sulfate 220 mg 11/12/20 09:00 11/12/20 08:09 Zinc Sulfate 220 Mg Cap PO 220 mg DAILY JOSSUE Administration - Exam General Appearance: NAD, ill appearing Eye: PERRL, anicteric sclera ENT: normocephalic atraumatic, no oropharyngeal lesions Neck: supple, symmetric, no JVD, no thyromegaly, no lymphadenopathy Heart: RRR, no murmur, no gallops, no rubs Respiratory: no wheezes, no rales, no ronchi Gastrointestinal: soft, non-tender, non-distended, normal bowel sounds Extremities - other findings: Bilateral above-knee amputation Neurological: hemiplegia, speech deficit Neurological - other findings: Contracture noted Psychiatric: normal affect Hosp A/P (1) Acute kidney failure Status: Acute (2) Hypernatremia Code(s): E87.0 - HYPEROSMOLALITY AND HYPERNATREMIA Status: Acute (3) Dehydration Code(s): E86.0 - DEHYDRATION Status: Acute (4) Left lower lobe pneumonia Code(s): J18.9 - PNEUMONIA, UNSPECIFIED ORGANISM Status: Acute Qualifiers: Pneumonia type: due to unspecified organism Qualified Code(s): J18.9 - Pneumonia, unspecified organism (5) COVID-19 Code(s): U07.1 - COVID-19 Status: Acute (6) Dementia Code(s): F03.90 - UNSPECIFIED DEMENTIA WITHOUT BEHAVIORAL DISTURBANCE Status: Chronic Qualifiers: Dementia type: unspecified type Dementia behavioral disturbance: without behavioral disturbance Qualified Code(s): F03.90 - Unspecified dementia without behavioral disturbance (7) Dysphagia as late effect of stroke Code(s): I69.391 - DYSPHAGIA FOLLOWING CEREBRAL INFARCTION Status: Chronic (8) GERD (gastroesophageal reflux disease) Code(s): K21.9 - GASTRO-ESOPHAGEAL REFLUX DISEASE WITHOUT ESOPHAGITIS Status: Chronic Qualifiers: Esophagitis presence: without esophagitis Qualified Code(s): K21.9 - Gastro-esophageal reflux disease without esophagitis (9) H/O: CVA (cerebrovascular accident) Code(s): Z86.73 - PRSNL HX OF TIA (TIA), AND CEREB INFRC W/O RESID DEFICITS Status: Chronic (10) HLD (hyperlipidemia) Code(s): E78.5 - HYPERLIPIDEMIA, UNSPECIFIED Status: Chronic (11) HTN (hypertension) Code(s): I10 - ESSENTIAL (PRIMARY) HYPERTENSION Status: Chronic Qualifiers: Hypertension type: essential hypertension Qualified Code(s): I10 - Essential (primary) hypertension (12) Hx of AKA (above knee amputation) Code(s): Z89.619 - ACQUIRED ABSENCE OF UNSPECIFIED LEG ABOVE KNEE Status: Chronic (13) PAD (peripheral artery disease) Code(s): I73.9 - PERIPHERAL VASCULAR DISEASE, UNSPECIFIED Status: Chronic - Plan old records reviewed/req, continue antibiotics, speech therapy, respiratory therapy, DVT proph w/heparin Continue cefepime and azithromycin, continue IV fluid, palliative care consulted, patient has DNR status at longterm, will consult speech therapy for swallow evaluation, will repeat labs tomorrow, patient's long-term prognosis poor, medication reviewed and continued per symptomatic and supportive care, follow-up on culture result, will send urine analysis and urine culture
[2020-11-12 10:36] LABS: #Lymphocytes 0.7 thou/uL (1.20-3.40); #Monocytes 0.4 thou/uL (0.11-0.59); #Neutrophils 5.2 thou/uL (1.40-6.50); %Eosinophils 0.3 % (0.0-10.0); %Lymphocytes 10.4 % (21.0-51.0); %Monocytes 6.6 % (0.0-10.0); %Neutrophils 82.7 % (42.0-75.0); Hemoglobin 11.5 g/dL (14.0-18.0); Mean Corpuscular HGB CONC 31.1 g/dL (32.0-36.0); Mean Corpuscular Hemoglobin 24.9 pg (27.0-31.0); Platelet Count 158 thou/uL (130-400); Red Blood Cell (RBC) Count 4.63 mill/uL (4.70-6.10); White Blood Cell (WBC) Count 6.3 thou/uL (4.8-10.8)
[2020-11-12 11:00] LABS: ALT (SGPT) 17 U/L (8-55); AST (SGOT) 28 U/L (5-34); Albumin 3.1 g/dL (3.4-4.8); Alkaline Phosphatase 41 U/L (40-110); Anion Gap 14 mmol/L (10-20); BUN (Urea Nitrogen) 43 mg/dL (8.4-25.7); Bilirubin, Total 0.4 mg/dL (0.2-1.2); Calc. Creatinine Clearance 26 mL/min (70-130); Calcium 7.3 mg/dL (7.8-10.44); Carbon Dioxide 20 mmol/L (23-31); Chloride 119 mmol/L (98-107); Globulin 3.5 g/dL (2.4-3.5); Glucose 102 mg/dL (80-115); Potassium 4.4 mmol/L (3.5-5.1); Protein, Total 6.6 g/dL (5.8-8.1); Sodium 149 mmol/L (136-145)
[2020-11-12 11:42] LABS: Bilirubin Negative (Negative); Blood, Urine Trace (Negative); Clarity Turbid (Clear); Glucose, Urine (Dipstick) Normal (Negative); Ketone, Urine Negative (Negative); Leukocyte Negative Leu/uL (Negative); Nitrite Negative (Negative); Protein, Urine (Dipstick) 300 mg/dL (Neg-Trace); Specific Gravity, Urine 1.022 (1.002-1.036); Squamous Epithelial None Seen HPF (0-3); Urobilinogen Normal mg/dL (Less than 2)
[2020-11-12 11:43] LABS: Bacteria/HPF 1+ HPF (None Seen)
[2020-11-12 11:44] LABS: Urine Culture Reflex Yes Yes
[2020-11-12] MEDS: Cefepime 1 GM in Sodium Chloride 0.9% 100 ML IVPB SCH (12:12)
[2020-11-12] MEDS: Azithromycin 500 MG in Sodium Chloride 0.9% 250 ML 250 ML IVPB SCH (21:06)
[2020-11-12] MEDS: Atorvastatin Calcium 10 MG TAB PO SCH (21:06)
[2020-11-13 07:01] LABS: #Basophils 0.1 thou/uL (0.0-0.2); #Lymphocytes 1.2 thou/uL (1.20-3.40); #Monocytes 0.5 thou/uL (0.11-0.59); #Neutrophils 2.6 thou/uL (1.40-6.50); %Basophils 1.4 % (0.0-1.0); %Eosinophils 0.1 % (0.0-10.0); %Lymphocytes 28.1 % (21.0-51.0); %Monocytes 10.9 % (0.0-10.0); %Neutrophils 59.5 % (42.0-75.0); Hemoglobin 10.6 g/dL (14.0-18.0); Mean Corpuscular HGB CONC 30.9 g/dL (32.0-36.0); Mean Corpuscular Hemoglobin 24.4 pg (27.0-31.0); Mean Corpuscular Volume 78.9 fL (78.0-98.0); Mean Platelet Volume 11.3 fL (7.4-10.4); Platelet Count 157 thou/uL (130-400); RBC Distribution Width 15.9 % (11.5-14.5); Red Blood Cell (RBC) Count 4.33 mill/uL (4.70-6.10); White Blood Cell (WBC) Count 4.4 thou/uL (4.8-10.8)
[2020-11-13 07:08] LABS: Anion Gap 15 mmol/L (10-20); BUN (Urea Nitrogen) 41 mg/dL (8.4-25.7); Calc. Creatinine Clearance 25 mL/min (70-130); Calcium 6.8 mg/dL (7.8-10.44); Carbon Dioxide 20 mmol/L (23-31); Chloride 118 mmol/L (98-107); Glucose 96 mg/dL (80-115); Potassium 4.1 mmol/L (3.5-5.1); Sodium 149 mmol/L (136-145)
[2020-11-13] MEDS: Zinc Sulfate 220 MG CAP PO SCH (08:12)
[2020-11-13] MEDS: Benztropine 1 MG TAB PO SCH ×2 (08:12→20:54)
[2020-11-13] MEDS: Ascorbic Acid 500 mg Chewable Tablet PO SCH (08:12)
[2020-11-13] MEDS: Folic Acid 1 MG TAB PO SCH (08:12)
[2020-11-13] MEDS: Docusate 100 MG CAP PO SCH ×2 (08:12→20:55)
[2020-11-13] MEDS: Heparin 5,000 UNITS/ML VIAL SC SCH ×2 (08:13→20:55)
[2020-11-13] MEDS: Dextrose 5 %-0.45 % NaCl 1,000 ML IV SCH (08:15)
[2020-11-13] MEDS: Dexamethasone 10 MG/ML VIAL SLOW IVP SCH (10:45)
[2020-11-13] MEDS: Cefepime 1 GM in Sodium Chloride 0.9% 100 ML IVPB SCH (13:00)
--- NOTE | 2020-11-13 16:41 | PDOC.HOSPP ---
- Subjective Subjective: Patient was seen examined. no fever, sating' well on room air - Objective Vital Signs & Weight: Vital Signs (12 hours) Temp Pulse Resp Pulse Ox 11/13/20 09:49 98.0 F 88 18 98 11/13/20 08:00 98 11/13/20 06:00 97.9 F 89 20 93 L Weight Weight 121 lb 7.595 oz I&O: 11/12/20 11/13/20 11/14/20 06:59 06:59 06:59 Intake Total 1240 Balance 1240 Result Diagrams: 11/13/20 06:46 11/13/20 06:46 Hospitalist ROS - Medication Medications: Active Medications Generic Name Dose Route Start Last Admin Trade Name Freq PRN Reason Stop Dose Admin Acetaminophen 650 mg 11/11/20 19:08 11/12/20 17:40 Acetaminophen 325 Mg Tab PO 650 mg Q4H PRN Administration Headache/Fever/Mild Pain (1-3) Hydrocodone Bitart/Acetaminophen 1 tab 11/11/20 19:08 11/12/20 02:18 Hydrocodone/Acetaminophen 5/325 Mg Tablet PO 1 tab Q4H PRN Administration Moderate Pain (4-6) Ascorbic Acid 1,000 mg 11/12/20 09:00 11/13/20 08:12 Ascorbic Acid 500 Mg Chewable Tablet PO 1,000 mg DAILY JOSSUE Administration Atorvastatin Calcium 10 mg 11/11/20 21:00 11/12/20 21:06 Atorvastatin Calcium 10 Mg Tab PO 10 mg HS JOSSUE Administration Benztropine Mesylate 1 mg 11/11/20 21:00 11/13/20 08:12 Benztropine 1 Mg Tab PO 1 mg BID JOSSUE Administration Dexamethasone 6 mg 11/13/20 09:00 11/13/20 10:45 Dexamethasone 10 Mg/Ml Vial SLOW IVP 6 mg DAILY JOSSUE Administration Divalproex Sodium 250 mg 11/11/20 21:00 11/13/20 08:12 Divalproex Sodium Er 250 Mg Tab PO 250 mg BID JOSSUE Administration Docusate Sodium 100 mg 11/11/20 21:00 11/13/20 08:12 Docusate 100 Mg Cap PO 100 mg BID JOSSUE Administration Folic Acid 1 mg 11/12/20 09:00 11/13/20 08:12 Folic Acid 1 Mg Tab PO 1 mg DAILY JOSSUE Administration Heparin Sodium (Porcine) 5,000 units 11/11/20 21:00 11/13/20 08:13 Heparin 5,000 Units/Ml Vial SC 5,000 units Q12HR JOSSUE Administration Azithromycin 500 mg/ Sodium 250 mls @ 250 mls/hr 11/11/20 20:00 11/12/20 21:06 Chloride IVPB 250 mls Q24HR JOSSUE Administration Cefepime HCl 1 gm/ Sodium 100 mls @ 200 mls/hr 11/12/20 13:00 11/13/20 13:00 Chloride IVPB 100 mls 1300 JOSSUE Administration Pantoprazole Sodium 40 mg 11/12/20 09:00 11/13/20 08:12 Pantoprazole 40 Mg Tab PO 40 mg DAILY JOSSUE Administration Venlafaxine HCl 75 mg 11/12/20 09:00 11/13/20 08:12 Venlafaxine Hcl 75 Mg Tab PO 75 mg DAILY JOSSUE Administration Vitamin E 200 units 11/12/20 09:00 11/13/20 08:13 Vitamin E 200 Units Cap PO 200 units DAILY JOSSUE Administration Zinc Sulfate 220 mg 11/12/20 09:00 11/13/20 08:12 Zinc Sulfate 220 Mg Cap PO 220 mg DAILY JOSSUE Administration - Exam General Appearance: NAD Eye: PERRL ENT: normocephalic atraumatic Neck: supple Heart: RRR Respiratory: CTAB, no wheezes Gastrointestinal: soft, non-tender Extremities - other findings: b/l amputee Neurological: cranial nerve grossly intact Musculoskeletal: normal tone, normal strength Psychiatric: normal affect, normal behavior Hosp A/P - Plan Patient is 65 years old -English gentleman, a [facility] resident, who was recently tested positive for Covid 19, he was found to have a low-grade fever, and hypoxic at the [facility]. Initial work-up, found the patient in GENNY, hyponatremia, chest x-ray showed left lower lobe infiltrate. COVID-19 pneumonia --Continue empiric antibiotic, add Decadron. Patient satting well on room air. GENNY --cont IVF hydration, follow BMP. Avoid nephrotoxic agent Hypernatremia, hypokalemia --Continue IV fluid hydration with D5 half NS, follow BMP Hypertension --Resume home medication Dyslipidemia --Continue home med GERD --cont PPI PVD with bilateral AKA Vascular dementia --Supportive care History of CVA
[2020-11-13] MEDS: Atorvastatin Calcium 10 MG TAB PO SCH (20:54)
[2020-11-13] MEDS: HYDROcodone/Acetaminophen 5/325 mg Tablet PO PRN (20:55)
[2020-11-13] MEDS: Azithromycin 500 MG in Sodium Chloride 0.9% 250 ML 250 ML IVPB SCH (20:55)
[2020-11-14] MEDS: Ascorbic Acid 500 mg Chewable Tablet PO SCH (08:32)
[2020-11-14] MEDS: Docusate 100 MG CAP PO SCH ×2 (08:32→20:23)
[2020-11-14] MEDS: Folic Acid 1 MG TAB PO SCH (08:32)
[2020-11-14] MEDS: Benztropine 1 MG TAB PO SCH ×2 (08:32→20:23)
[2020-11-14] MEDS: Zinc Sulfate 220 MG CAP PO SCH (08:32)
[2020-11-14] MEDS: Heparin 5,000 UNITS/ML VIAL SC SCH ×2 (08:33→20:23)
[2020-11-14] MEDS: Acetaminophen 325 MG TAB PO PRN ×2 (08:33→16:23)
[2020-11-14] MEDS: Dexamethasone 10 MG/ML VIAL SLOW IVP SCH ×2 (08:33→10:50)
[2020-11-14 09:56] LABS: Anion Gap 14 mmol/L (10-20); BUN (Urea Nitrogen) 50 mg/dL (8.4-25.7); Calc. Creatinine Clearance 21 mL/min (70-130); Calcium 7.2 mg/dL (7.8-10.44); Carbon Dioxide 20 mmol/L (23-31); Chloride 120 mmol/L (98-107); Glucose 95 mg/dL (80-115); Potassium 4.2 mmol/L (3.5-5.1); Sodium 150 mmol/L (136-145)
[2020-11-14] MEDS: Cefepime 1 GM in Sodium Chloride 0.9% 100 ML IVPB SCH (12:45)
--- NOTE | 2020-11-14 14:59 | PDOC.HOSPP ---
- Subjective Subjective: Was seen examined at bedside. He had a fever of 101.3 today. - Objective Vital Signs & Weight: Vital Signs (12 hours) Temp Pulse Resp BP BP Pulse Ox 11/14/20 12:00 99.2 F 95 18 111/77 92 L 11/14/20 08:00 101.3 F H 92 18 150/84 H 92 L 11/14/20 05:38 94 L Weight Weight 121 lb 7.595 oz I&O: 11/13/20 11/14/20 11/15/20 06:59 06:59 06:59 Intake Total 1240 Balance 1240 Result Diagrams: 11/13/20 06:46 11/14/20 09:24 Radiology Reviewed by me: Yes EKG Reviewed by me: Yes Hospitalist ROS - Medication Medications: Active Medications Generic Name Dose Route Start Last Admin Trade Name Freq PRN Reason Stop Dose Admin Acetaminophen 650 mg 11/11/20 19:08 11/14/20 08:33 Acetaminophen 325 Mg Tab PO 650 mg Q4H PRN Administration Headache/Fever/Mild Pain (1-3) Hydrocodone Bitart/Acetaminophen 1 tab 11/11/20 19:08 11/13/20 20:55 Hydrocodone/Acetaminophen 5/325 Mg Tablet PO 1 tab Q4H PRN Administration Moderate Pain (4-6) Ascorbic Acid 1,000 mg 11/12/20 09:00 11/14/20 08:32 Ascorbic Acid 500 Mg Chewable Tablet PO 1,000 mg DAILY JOSSUE Administration Atorvastatin Calcium 10 mg 11/11/20 21:00 11/13/20 20:54 Atorvastatin Calcium 10 Mg Tab PO 10 mg HS JOSSUE Administration Benztropine Mesylate 1 mg 11/11/20 21:00 11/14/20 08:32 Benztropine 1 Mg Tab PO 1 mg BID JOSSUE Administration Dexamethasone 6 mg 11/13/20 09:00 11/14/20 10:50 Dexamethasone 10 Mg/Ml Vial SLOW IVP 6 mg DAILY JOSSUE Administration Divalproex Sodium 250 mg 11/11/20 21:00 11/14/20 08:32 Divalproex Sodium Er 250 Mg Tab PO 250 mg BID JOSSUE Administration Docusate Sodium 100 mg 11/11/20 21:00 11/14/20 08:32 Docusate 100 Mg Cap PO 100 mg BID JOSSUE Administration Folic Acid 1 mg 11/12/20 09:00 11/14/20 08:32 Folic Acid 1 Mg Tab PO 1 mg DAILY JOSSUE Administration Heparin Sodium (Porcine) 5,000 units 11/11/20 21:00 11/14/20 08:33 Heparin 5,000 Units/Ml Vial SC 5,000 units Q12HR JOSSUE Administration Azithromycin 500 mg/ Sodium 250 mls @ 250 mls/hr 11/11/20 20:00 11/13/20 20:55 Chloride IVPB 250 mls Q24HR JOSSUE Administration Cefepime HCl 1 gm/ Sodium 100 mls @ 200 mls/hr 11/12/20 13:00 11/14/20 12:45 Chloride IVPB 100 mls 1300 JOSSUE Administration Pantoprazole Sodium 40 mg 11/12/20 09:00 11/14/20 08:32 Pantoprazole 40 Mg Tab PO 40 mg DAILY JOSSUE Administration Venlafaxine HCl 75 mg 11/12/20 09:00 11/14/20 08:32 Venlafaxine Hcl 75 Mg Tab PO 75 mg DAILY JOSSUE Administration Vitamin E 200 units 11/12/20 09:00 11/14/20 08:33 Vitamin E 200 Units Cap PO 200 units DAILY JOSSUE Administration Zinc Sulfate 220 mg 11/12/20 09:00 11/14/20 08:32 Zinc Sulfate 220 Mg Cap PO 220 mg DAILY JOSSUE Administration - Exam General Appearance: NAD Eye: PERRL ENT: normocephalic atraumatic Neck: supple Heart: RRR Respiratory: CTAB Gastrointestinal: soft, non-tender Extremities: no cyanosis Skin: normal turgor Hosp A/P - Plan Patient is 65 years old -[place] gentleman, a [facility], who was recently tested positive for Covid 19, he was found to have a low-grade fever[facility] Initial work-up, found the patient in GENNY, hyponatremia, chest x-ray showed left lower lobe infiltrate. COVID-19 pneumonia --Continue empiric antibiotics, add Decadron. Pt is current on room air. Not a candidate for Remdesivir d/t renal function --cont supportive cares GENNY --cont IVF hydration, follow BMP. Avoid nephrotoxic agent Hypernatremia, mild --adjust IVF, follow BMP Hypertension --Resume home medication Dyslipidemia --Continue home med GERD --cont PPI PVD with bilateral AKA Vascular dementia --Supportive care History of CVA
[2020-11-14] MEDS ORDERED: Dextrose 5% in Water 1,000 ML IV SCH (15:00)
[2020-11-14] MEDS: Azithromycin 500 MG in Sodium Chloride 0.9% 250 ML 250 ML IVPB SCH (20:22)
[2020-11-14] MEDS: Atorvastatin Calcium 10 MG TAB PO SCH (20:24)
[2020-11-15] MEDS: Dextrose 5% in Water 1,000 ML IV SCH ×2 (08:55→22:25)
[2020-11-15] MEDS: Ascorbic Acid 500 mg Chewable Tablet PO SCH (08:55)
[2020-11-15] MEDS: Dexamethasone 10 MG/ML VIAL SLOW IVP SCH (08:56)
[2020-11-15] MEDS: Benztropine 1 MG TAB PO SCH ×2 (08:56→22:19)
[2020-11-15] MEDS: Heparin 5,000 UNITS/ML VIAL SC SCH ×2 (08:56→22:19)
[2020-11-15] MEDS: Zinc Sulfate 220 MG CAP PO SCH (08:56)
[2020-11-15] MEDS: Docusate 100 MG CAP PO SCH ×2 (08:56→22:18)
[2020-11-15] MEDS: Folic Acid 1 MG TAB PO SCH (08:56)
[2020-11-15 09:12] LABS: #Monocytes 0.7 thou/uL (0.11-0.59); #Neutrophils 4.3 thou/uL (1.40-6.50); %Basophils 0.2 % (0.0-1.0); %Lymphocytes 16.5 % (21.0-51.0); %Monocytes 11.4 % (0.0-10.0); %Neutrophils 71.9 % (42.0-75.0); Hemoglobin 11.7 g/dL (14.0-18.0); Mean Corpuscular HGB CONC 30.7 g/dL (32.0-36.0); Mean Corpuscular Hemoglobin 24.3 pg (27.0-31.0); Mean Corpuscular Volume 79.3 fL (78.0-98.0); Mean Platelet Volume 11.9 fL (7.4-10.4); Platelet Count 193 thou/uL (130-400); RBC Distribution Width 16.2 % (11.5-14.5); Red Blood Cell (RBC) Count 4.79 mill/uL (4.70-6.10); White Blood Cell (WBC) Count 5.9 thou/uL (4.8-10.8)
[2020-11-15 09:35] LABS: Anion Gap 17 mmol/L (10-20); BUN (Urea Nitrogen) 60 mg/dL (8.4-25.7); CRP (Inflammatory) 7.13 mg/dL (= or < 0.5); Calc. Creatinine Clearance 16 mL/min (70-130); Calcium 7.3 mg/dL (7.8-10.44); Carbon Dioxide 19 mmol/L (23-31); Chloride 120 mmol/L (98-107); Glucose 103 mg/dL (80-115); Potassium 4.6 mmol/L (3.5-5.1); Sodium 151 mmol/L (136-145)
[2020-11-15] MEDS: Cefepime 1 GM in Sodium Chloride 0.9% 100 ML IVPB SCH (12:00)
[2020-11-15] MEDS: HYDROcodone/Acetaminophen 5/325 mg Tablet PO PRN (16:23)
--- NOTE | 2020-11-15 16:37 | PDOC.HOSPP ---
- Subjective Encounter Date: 11/15/20 Encounter Time: 16:35 Subjective: Mr. Gee was seen today in follow-up of COVID infection and hypernatremia. He is sitting up in bed. He does not have any complaints. He denies feeling short of breath. - Objective Vital Signs & Weight: Vital Signs (12 hours) Temp Pulse Resp BP BP Pulse Ox 11/15/20 12:17 98.6 F 79 18 138/84 97 11/15/20 08:29 92 L 11/15/20 08:17 98.2 F 73 18 139/99 H 92 L 11/15/20 06:00 97 Weight Weight 121 lb 7.595 oz I&O: 11/14/20 11/15/20 11/16/20 06:59 06:59 06:59 Intake Total 740 Balance 740 Result Diagrams: 11/15/20 09:01 11/15/20 09:01 Hospitalist ROS - Medication Medications: Active Medications Generic Name Dose Route Start Last Admin Trade Name Freq PRN Reason Stop Dose Admin Acetaminophen 650 mg 11/11/20 19:08 11/14/20 16:23 Acetaminophen 325 Mg Tab PO 650 mg Q4H PRN Administration Headache/Fever/Mild Pain (1-3) Hydrocodone Bitart/Acetaminophen 1 tab 11/11/20 19:08 11/15/20 16:23 Hydrocodone/Acetaminophen 5/325 Mg Tablet PO 1 tab Q4H PRN Administration Moderate Pain (4-6) Ascorbic Acid 1,000 mg 11/12/20 09:00 11/15/20 08:55 Ascorbic Acid 500 Mg Chewable Tablet PO 1,000 mg DAILY JOSSUE Administration Atorvastatin Calcium 10 mg 11/11/20 21:00 11/14/20 20:24 Atorvastatin Calcium 10 Mg Tab PO 10 mg HS JOSSUE Administration Benztropine Mesylate 1 mg 11/11/20 21:00 11/15/20 08:56 Benztropine 1 Mg Tab PO 1 mg BID JOSSUE Administration Dexamethasone 6 mg 11/13/20 09:00 11/15/20 08:56 Dexamethasone 10 Mg/Ml Vial SLOW IVP 6 mg DAILY JOSSUE Administration Divalproex Sodium 250 mg 11/11/20 21:00 11/15/20 08:56 Divalproex Sodium Er 250 Mg Tab PO 250 mg BID JOSSUE Administration Docusate Sodium 100 mg 11/11/20 21:00 11/15/20 08:56 Docusate 100 Mg Cap PO 100 mg BID JOSSUE Administration Folic Acid 1 mg 11/12/20 09:00 11/15/20 08:56 Folic Acid 1 Mg Tab PO 1 mg DAILY JOSSUE Administration Heparin Sodium (Porcine) 5,000 units 11/11/20 21:00 11/15/20 08:56 Heparin 5,000 Units/Ml Vial SC 5,000 units Q12HR JOSSUE Administration Azithromycin 500 mg/ Sodium 250 mls @ 250 mls/hr 11/11/20 20:00 11/14/20 20:22 Chloride IVPB 250 mls Q24HR JOSSUE Administration Cefepime HCl 1 gm/ Sodium 100 mls @ 200 mls/hr 11/12/20 13:00 11/15/20 12:00 Chloride IVPB 100 mls 1300 JOSSUE Administration Dextrose/Water 1,000 mls @ 75 mls/hr 11/15/20 07:52 11/15/20 08:55 D5w IV 1,000 mls .[id number] JOSSUE Administration Pantoprazole Sodium 40 mg 11/12/20 09:00 11/15/20 08:56 Pantoprazole 40 Mg Tab PO 40 mg DAILY JOSSUE Administration Sodium Chloride 10 ml 11/15/20 09:00 11/15/20 08:56 Flush - Normal Saline 10 Ml Syringe IVF 10 ml Q12HR JOSSUE Administration Venlafaxine HCl 75 mg 11/12/20 09:00 11/15/20 08:56 Venlafaxine Hcl 75 Mg Tab PO 75 mg DAILY JOSSUE Administration Vitamin E 200 units 11/12/20 09:00 11/15/20 09:00 Vitamin E 200 Units Cap PO 200 units DAILY JOSSUE Administration Zinc Sulfate 220 mg 11/12/20 09:00 11/15/20 08:56 Zinc Sulfate 220 Mg Cap PO 220 mg DAILY JOSSUE Administration - Exam Eye: PERRL, anicteric sclera Heart: RRR, no murmur, no gallops, no rubs, normal peripheral pulses Respiratory: CTAB, no wheezes, no rales, no ronchi, normal chest expansion, no tachypnea Gastrointestinal: soft, non-tender, non-distended, normal bowel sounds, no palpa ble masses, no hepatomegaly, no splenomegaly Extremities: no cyanosis (+ bilateral AKA), no edema Hosp A/P (1) COVID-19 Code(s): U07.1 - COVID-19 Status: Acute (2) Acute kidney failure Status: Acute (3) Dehydration Code(s): E86.0 - DEHYDRATION Status: Acute (4) Hypernatremia Code(s): E87.0 - HYPEROSMOLALITY AND HYPERNATREMIA Status: Acute (5) H/O: CVA (cerebrovascular accident) Code(s): Z86.73 - PRSNL HX OF TIA (TIA), AND CEREB INFRC W/O RESID DEFICITS S tatus: Chronic (6) HTN (hypertension) Code(s): I10 - ESSENTIAL (PRIMARY) HYPERTENSION Status: Chronic Qualifiers: Hypertension type: essential hypertension Qualified Code(s): I10 - Essential (primary) hypertension (7) Hx of AKA (above knee amputation) Code(s): Z89.619 - ACQUIRED ABSENCE OF UNSPECIFIED LEG ABOVE KNEE Status: Chronic - Plan * COVID infection- he is not having any respiratory symptoms, and his oxygen level is adequate * Hypernatremia and dehydration- his free water deficit is about 2 liters- will increase his IV fluid rate to 75ml/hr * GENNY- this is not improving-likely due to volume depletion- will see what his serum creatinine is in the AM, and assess. He may need Nephrology evaluation * HTN- blood pressure is controlled * His medical case was dicussed with Case Management- his family would like to consider Hospice- will place an order
[2020-11-15] MEDS: Atorvastatin Calcium 10 MG TAB PO SCH (22:18)
[2020-11-15] MEDS: Azithromycin 500 MG in Sodium Chloride 0.9% 250 ML 250 ML IVPB SCH (22:19)
[2020-11-16] MEDS: Folic Acid 1 MG TAB PO SCH (07:59)
[2020-11-16] MEDS: Docusate 100 MG CAP PO SCH ×2 (07:59→19:55)
[2020-11-16] MEDS: Benztropine 1 MG TAB PO SCH ×2 (07:59→19:55)
[2020-11-16] MEDS: Zinc Sulfate 220 MG CAP PO SCH (07:59)
[2020-11-16] MEDS: Ascorbic Acid 500 mg Chewable Tablet PO SCH (08:00)
[2020-11-16] MEDS: Heparin 5,000 UNITS/ML VIAL SC SCH ×2 (08:00→19:55)
[2020-11-16] MEDS: Dexamethasone 4 mg/ml Vial SLOW IVP SCH (08:00)
[2020-11-16] MEDS: Dextrose 5% in Water 1,000 ML IV SCH ×2 (09:14→17:08)
[2020-11-16] MEDS: Cefepime 1 GM in Sodium Chloride 0.9% 100 ML IVPB SCH (11:46)
[2020-11-16 13:39] LABS: Anion Gap 17 mmol/L (10-20); BUN (Urea Nitrogen) 77 mg/dL (8.4-25.7); CRP (Inflammatory) 2.34 mg/dL (= or < 0.5); Calc. Creatinine Clearance 14 mL/min (70-130); Calcium 6.8 mg/dL (7.8-10.44); Carbon Dioxide 14 mmol/L (23-31); Chloride 113 mmol/L (98-107); Glucose 95 mg/dL (80-115); Potassium 4.2 mmol/L (3.5-5.1); Sodium 140 mmol/L (136-145)
--- NOTE | 2020-11-16 17:22 | PDOC.HOSPP ---
- Subjective Encounter Date: 11/16/20 Encounter Time: 17:20 Subjective: Mr. Gee was seen today in follow-up of COVID infection and encephalopathy. He is breathing fine without supplemental oxygen. He has not allowed anyone to draw his blood. He appears clinically at his baseline. - Objective Vital Signs & Weight: Vital Signs (12 hours) Temp Pulse Resp BP Pulse Ox 11/16/20 15:25 98.2 F 68 16 139/100 H 100 11/16/20 11:38 98.1 F 78 16 138/89 94 L 11/16/20 09:05 97 11/16/20 07:29 98.4 F 74 16 149/89 H 97 Weight Weight 121 lb 7.595 oz I&O: 11/15/20 11/16/20 11/17/20 06:59 06:59 06:59 Intake Total 740 1240 Balance 740 1240 Result Diagrams: 11/15/20 09:01 11/16/20 13:14 Hospitalist ROS - Medication Medications: Active Medications Generic Name Dose Route Start Last Admin Trade Name Freq PRN Reason Stop Dose Admin Acetaminophen 650 mg 11/11/20 19:08 11/14/20 16:23 Acetaminophen 325 Mg Tab PO 650 mg Q4H PRN Administration Headache/Fever/Mild Pain (1-3) Hydrocodone Bitart/Acetaminophen 1 tab 11/11/20 19:08 11/15/20 16:23 Hydrocodone/Acetaminophen 5/325 Mg Tablet PO 1 tab Q4H PRN Administration Moderate Pain (4-6) Ascorbic Acid 1,000 mg 11/12/20 09:00 11/16/20 08:00 Ascorbic Acid 500 Mg Chewable Tablet PO 1,000 mg DAILY JOSSUE Administration Atorvastatin Calcium 10 mg 11/11/20 21:00 11/15/20 22:18 Atorvastatin Calcium 10 Mg Tab PO 10 mg HS JOSSUE Administration Benztropine Mesylate 1 mg 11/11/20 21:00 11/16/20 07:59 Benztropine 1 Mg Tab PO 1 mg BID JOSSUE Administration Dexamethasone 6 mg 11/16/20 09:00 11/16/20 08:00 Dexamethasone 4 Mg/Ml Vial SLOW IVP 6 mg DAILY JOSSUE Administration Divalproex Sodium 250 mg 11/11/20 21:00 11/16/20 08:00 Divalproex Sodium Er 250 Mg Tab PO 250 mg BID JOSSUE Administration Docusate Sodium 100 mg 11/11/20 21:00 11/16/20 07:59 Docusate 100 Mg Cap PO 100 mg BID JOSSUE Administration Folic Acid 1 mg 11/12/20 09:00 11/16/20 07:59 Folic Acid 1 Mg Tab PO 1 mg DAILY JOSSUE Administration Heparin Sodium (Porcine) 5,000 units 11/11/20 21:00 11/16/20 08:00 Heparin 5,000 Units/Ml Vial SC 5,000 units Q12HR JOSSUE Administration Azithromycin 500 mg/ Sodium 250 mls @ 250 mls/hr 11/11/20 20:00 11/15/20 22:19 Chloride IVPB 250 mls Q24HR JOSSUE Administration Cefepime HCl 1 gm/ Sodium 100 mls @ 200 mls/hr 11/12/20 13:00 11/16/20 11:46 Chloride IVPB 100 mls 1300 JOSSUE Administration Dextrose/Water 1,000 mls @ 75 mls/hr 11/15/20 07:52 11/16/20 09:14 D5w IV Not Given .[id number] JOSSUE Pantoprazole Sodium 40 mg 11/12/20 09:00 11/16/20 07:59 Pantoprazole 40 Mg Tab PO 40 mg DAILY JOSSUE Administration Sodium Chloride 10 ml 11/15/20 09:00 11/16/20 08:01 Flush - Normal Saline 10 Ml Syringe IVF 10 ml Q12HR JOSSUE Administration Venlafaxine HCl 75 mg 11/12/20 09:00 11/16/20 07:59 Venlafaxine Hcl 75 Mg Tab PO 75 mg DAILY JOSSUE Administration Vitamin E 200 units 11/12/20 09:00 11/16/20 07:59 Vitamin E 200 Units Cap PO 200 units DAILY JOSSUE Administration Zinc Sulfate 220 mg 11/12/20 09:00 11/16/20 07:59 Zinc Sulfate 220 Mg Cap PO 220 mg DAILY JOSSUE Administration - Exam Eye: PERRL, anicteric sclera Respiratory: CTAB, no wheezes, no rales, no ronchi, normal chest expansion Gastrointestinal: soft, non-tender, non-distended, normal bowel sounds, no palpable masses, no hepatomegaly Extremities: no cyanosis, no edema (+ bilateral AKA) Hosp A/P (1) COVID-19 Code(s): U07.1 - COVID-19 Status: Acute (2) Acute kidney failure Status: Acute (3) Dehydration Code(s): E86.0 - DEHYDRATION Status: Acute (4) Hypernatremia Code(s): E87.0 - HYPEROSMOLALITY AND HYPERNATREMIA Status: Acute (5) H/O: CVA (cerebrovascular accident) Code(s): Z86.73 - PRSNL HX OF TIA (TIA), AND CEREB INFRC W/O RESID DEFICITS Status: Chronic (6) HTN (hypertension) Code(s): I10 - ESSENTIAL (PRIMARY) HYPERTENSION Status: Chronic Qualifiers: Hypertension type: essential hypertension Qualified Code(s): I10 - Essential (primary) hypertension (7) Hx of AKA (above knee amputation) Code(s): Z89.619 - ACQUIRED ABSENCE OF UNSPECIFIED LEG ABOVE KNEE Status: Chronic - Plan * COVID infection- he is not having any respiratory symptoms, and his oxygen level is adequate * Hypernatremia and dehydration- he has not allowed blood draws, so unable to assess his current renal function * GENNY- unable to assess * HTN- blood pressure is controlled * Family would like to purse Hospice care which is appropriate, given the patient's refusal to allow proper monitoring
[2020-11-16] MEDS: Atorvastatin Calcium 10 MG TAB PO SCH (19:54)
[2020-11-16] MEDS: Azithromycin 500 MG in Sodium Chloride 0.9% 250 ML 250 ML IVPB SCH (20:06)
[2020-11-17 07:32] VITALS: BP 129/82; TEMP 98.3
[2020-11-17] MEDS: Ascorbic Acid 500 mg Chewable Tablet PO SCH (08:33)
[2020-11-17] MEDS: Docusate 100 MG CAP PO SCH (08:35)
[2020-11-17] MEDS: Benztropine 1 MG TAB PO SCH (08:36)
[2020-11-17] MEDS: Folic Acid 1 MG TAB PO SCH (08:36)
[2020-11-17] MEDS: Zinc Sulfate 220 MG CAP PO SCH (08:36)
[2020-11-17] MEDS: Heparin 5,000 UNITS/ML VIAL SC SCH (08:37)
[2020-11-17] MEDS: Dexamethasone 4 mg/ml Vial SLOW IVP SCH (08:42)
[2020-11-17] MEDS ORDERED: Dexamethasone 4 MG TAB PO SCH (10:00)
[2020-11-17 10:20] LABS: Anion Gap 16 mmol/L (10-20); BUN (Urea Nitrogen) 77 mg/dL (8.4-25.7); Calc. Creatinine Clearance 13 mL/min (70-130); Carbon Dioxide 13 mmol/L (23-31); Chloride 113 mmol/L (98-107); Glucose 72 mg/dL (80-115); Sodium 138 mmol/L (136-145)
--- NOTE | 2020-11-17 16:34 | PDOC.DS.DS ---
Provider - Provider Date of Admission: 11/11/20 14:57 Date of Discharge: 11/17/20 Admitting Provider: Leonardo Mosqueda DO Primary Care Physician: Unknown Course - Hospital Course Hospital Course: Mr. Gee is a 65-year-old gentleman who lives at [facility]. He t ested positive for COVID-19 on the Sunday prior to admission. He was brought to the emergency room after he developed a low-grade fever. He was evaluated in the emergency room and found to be dehydrated and hyponatremic. He was started on IV fluid resuscitation. And placed on hypotonic fluid to try to correct his sodium. The free water deficit was calculated and replacement was based on a 24 to 36-hour period. However the patient refused to have blood draws and therefore it made it difficult to monitor the progress. He also had acute kidney injury which was worsening. With regards to the Covid 19 infection he had very few to if any respiratory symptoms and was not requiring any suppl emental oxygen. However he was refusing treatment and as a result the family made the decision to place him on hospice. Even prior to the COVID-19 infection the patient had very limited quality of life. He has had a massive stroke which has left him essentially aphasic. 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 It is felt that this also was contributing to the decision making with regards to hospice. And on November 17 he was transferred back to the [facility] on home hospice. Resuscitation Status: 11/11/20 20:54 Resuscitation Status Routine Resuscitation Status: DNAR: NO Resuscitation Discussed with: Documentation in chart - Labs Lab Results: 11/15/20 09:01 11/17/20 09:46 Abnormal Lab Results - Last 48 hrs 11/16/20 13:14: Chloride 113 H, Carbon Dioxide 14 L, BUN 77 H, Creatinine 4.08 H, Calcium 6.8 L, C-Reactive Protein 2.34 H 11/16/20 23:55: Ferritin 1337.12 H 11/16/20 23:55: D-Dimer 3.18 H 11/17/20 09:46: Chloride 113 H, Carbon Dioxide 13 L, BUN 77 H, Creatinine 4.47 H, Calcium 7.0 L, C-Reactive Protein 1.60 H 11/17/20 09:46: Ferritin 1268.36 H Microbiology - Entire Visit 11/11/20 11:49 Venous blood - Right Hand Blood Culture - Final NO GROWTH IN 5 DAYS 11/11/20 11:49 Venous blood - Left Hand Blood Culture - Final NO GROWTH IN 5 DAYS 11/12/20 11:44 Urine Straight Catheter Urine Culture - Final - Physical Exam Vitals: Vital Signs (12 hours) Temp Pulse Resp BP Pulse Ox 11/17/20 07:31 98.3 F 78 16 129/82 100 Weight Weight 121 lb 7.595 oz Physical Exam: The patient was seen and examined on the day of discharge. Problem - Problem (1) COVID-19 Code(s): U07.1 - COVID-19 Status: Acute (2) Acute kidney failure Status: Acute (3) Dehydration Code(s): E86.0 - DEHYDRATION Status: Acute (4) Hypernatremia Code(s): E87.0 - HYPEROSMOLALITY AND HYPERNATREMIA Status: Acute (5) H/O: CVA (cerebrovascular accident) Code(s): Z86.73 - PRSNL HX OF TIA (TIA), AND CEREB INFRC W/O RESID DEFICITS Status: Chronic (6) HTN (hypertension) Code(s): I10 - ESSENTIAL (PRIMARY) HYPERTENSION Status: Chronic Qualifiers: Hypertension type: essential hypertension Qualified Code(s): I10 - Essential (primary) hypertension (7) Hx of AKA (above knee amputation) Code(s): Z89.619 - ACQUIRED ABSENCE OF UNSPECIFIED LEG ABOVE KNEE Status: Chronic Plan - Discharge Medications Home Medications: Medication Instructions Recorded Confirmed Type Docusate [Colace] 100 mg PO BID 07/10/13 11/11/20 History Lisinopril [Zestril] 20 mg PO DAILY 07/10/13 11/11/20 History Acetaminophen [Tylenol Regular 650 mg PO Q6HR PRN 06/06/16 11/11/20 History Strength] Divalproex Sodium [Divalproex 250 mg PO BID 06/06/16 11/11/20 History Sodium ER] Folic Acid [Folvite] 1 mg PO DAILY 06/06/16 11/11/20 History Metoprolol Tartrate 12.5 mg PO BID 06/06/16 11/11/20 History Amlodipine [Norvasc] 5 mg PO DAILY 10/03/19 11/11/20 History Benztropine [Cogentin] 1 mg PO BID 10/03/19 11/11/20 History Pravastatin Sodium [Pravachol] 40 mg PO HS 10/03/19 11/11/20 History Venlafaxine HCl [Effexor] 75 mg PO DAILY 10/03/19 11/11/20 History Ferrous Sulfate 7.5 ml PO BID 10/04/19 11/11/20 History Magnesium Hydroxide [Milk of 40 ml PO Q24H PRN 10/04/19 11/11/20 History Magnesia] traMADol HCl [Tramadol HCl] 50 mg PO Q8H PRN 10/04/19 11/11/20 History Pantoprazole [Protonix] 40 mg PO BID #60 tab 02/16/20 11/11/20 Rx Allergies: No Known Allergies Allergy (Verified 02/16/20 00:52) - Discharge Instructions Activity:: Activity as Tolerated Nourishment:: Heart Healthy Diet - Follow up Plan Referrals: Unknown,Unknown [Primary Care Provider] - Disposition: [facility] Quality - Care Measures CORE MEASURES:: N/A
[2020-11-18] MEDS ORDERED: Dexamethasone 4 MG TAB PO SCH (08:00)
== END 2020-11-17 13:05 | DRG 177 ==
LOC: ERS 11:18 → ERHOLD 14:57 → T4-A 18:57
PROVIDERS: ADMIT Family Medicine; ATTEND Internal Medicine
DX: U07.1 COVID-19 (principal); J12.89 Other viral pneumonia; N17.9 Acute kidney failure, unspecified; I69.354 Hemiplegia and hemiparesis following cerebral infarction affecting left non-dominant side; E87.0 Hyperosmolality and hypernatremia; K21.9 Gastro-esophageal reflux disease without esophagitis; I10 Essential (primary) hypertension; I73.9 Peripheral vascular disease, unspecified; E78.5 Hyperlipidemia, unspecified; F41.9 Anxiety disorder, unspecified; F01.50 Vascular dementia, unspecified severity, without behavioral disturbance, psychotic disturbance, mood disturbance, and anxiety; E87.6 Hypokalemia; F32.9 Major depressive disorder, single episode, unspecified; E86.0 Dehydration; J44.9 Chronic obstructive pulmonary disease, unspecified; I69.320 Aphasia following cerebral infarction; Z89.612 Acquired absence of left leg above knee; Z89.611 Acquired absence of right leg above knee; I69.391 Dysphagia following cerebral infarction
CPT/HCPCS: 36415; 36416; 71045; 80048; 80053; 81001; 82728; 83605; 85025; 85379; 86140; 87040; 87086; 93005; 94760; 96365; 96366; 96367; J0456; J0692; J1100; J1644; J1956; J3370; J3490; J7050; J8540